=== PATIENT | female | born 1990 | race Caucasian/White ===

== ENCOUNTER 2017-03-20 00:26 | Inpatient (IN) ==
[2017-03-20] MEDS ORDERED: 0.9 % Sodium Chloride 1,000 ML IVC ONE (02:52)
[2017-03-20] MEDS ORDERED: Vancomycin 1,000 MG in D5% in Water 250 ML IVPB ONE (02:52)
--- NOTE | 2017-03-20 03:12 | Emergency Department Note ---
Disposition Clinical Impression: Abscess of left axilla Disposition: Admitted As Inpatient Condition: Fair Time of Disposition: 05:12 Skin/Abscess/FB HPI Chief complaint: ED Skin/Abscess/Foreign Body Stated complaint: Boil L Armpit Time Seen by Provider: 03/20/17 01:30 Source: patient Mode of arrival: ambulatory Limitations: no limitations Nursing Notes Reviewed: Yes Vital Signs Reviewed: Yes HPI Narrative: 26-year-old female presents complaining of left axillary abscesses history of IV drug use, she states she has been clean for 2 years. Patient states that she was given a perception for Bactrim that she was taking for the last 5 days, she said worsening pain swelling and redness, drainage out of the wounds her left arm, she also states that she has had redness streaking down her left arm. Patient reports the pain is 7 out of 10. Worse with range of motion of her left arm, she has had intermittent fevers and chills at home. Pt Subjective Complaint: abscess/boil Location: LUE Severity: mild Improves with: none Worsens with: none Associated symptoms: Reports: fever, chills. Denies: rigors, itching, nausea, myalgias, cough Home Medications Medication Instructions Recorded Confirmed Buprenorphine HCl/Naloxone HCl 1 each SL 11/14/14 11/14/14 [Suboxone 8 mg-2 mg Sl Film] Medroxyprogesterone Acetate 11/14/14 11/14/14 [Depo-Provera] Previous Rx's Medication Instructions Recorded Amoxicillin [Amoxil] 500 mg PO TID #30 tab.chew 11/14/14 Ibuprofen [Motrin] 800 mg PO Q8HR #30 tablet 11/14/14 Mupirocin Calcium [Mupirocin] 30 gm TP TID #1 cream..g. 02/22/16 cephALEXin [Keflex] 500 mg PO QID #40 capsule 05/29/16 Lidocaine Patch [Lidoderm 5% patch] 1 each TP DAILY PRN #7 adh..patch 03/14/17 Sulfamethoxazole/Trimeth DS 1 each PO BID #20 tablet 03/14/17 [Bactrim DS] Allergies Allergy/AdvReac Type Severity Reaction Status Date / Time No Known Allergies Allergy Verified 02/22/16 03:36 All systems ED: reviewed and negative except as stated. Review of Systems: As Per HPI Constitutional: Reports: fever, chills Eyes: Denies: eye pain, eye discharge ENT ED: Denies: ear pain Cardiovascular: Denies: chest pain, palpitations Respiratory: Denies: cough, dyspnea Gastrointestinal: Reports: nausea. Denies: abdominal pain Genitourinary: Denies: urgency Musculoskeletal: Denies: back pain Integumentary: Reports: as per HPI, rash, abrasion, lesions Neurological: Denies: headache, weakness Psychiatric: Denies: anxiety Past Medical History - Past Medical History Attestation: Yes The following information was validated with the patient. 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 Absent: respiratory distress - Cardiovascular Cardiovascular exam: Present: tachycardia - Abdominal Exam Abdominal exam: Present: soft, Non-Tender - Expanded Upper Extremity Exam Shoulder exam: Present: normal inspection, full ROM, other (abscess left axillary multiple) Arm exam: Present: tenderness, swelling, erythema. Absent: deformity, crepitus Elbow exam: Absent: full ROM, tenderness - Back Exam Back exam: Absent: normal inspection - Neurological Exam Neurological exam: Present: alert, oriented X3, CN II-XII intact - Psychiatric Psychiatric exam: Present: normal affect - Skin Skin exam: Present: rash - Expanded Skin Exam Type of lesion: Present: rash, abscess Description: Present: discharge, indurated 1 - 3-4 deep abscesses with purulent drainage, redness streaking down left arm Course Course Narrative: 26-year-old female history of IV drug use, saline outpatient Bactrim, for left axillary abscess given the location concerning for possible need for surgical drainage, also she is having erythema spread down her left arm worsening and progressive cellulitis and she is tachycardic with basic lab work lactated blood cultures plan for admission and, IV - Reevaluation(s) Reevaluation #1: Admitted to Dr Norton for left aillary abscess and cellulitis Vital Signs Temperature 98.7 F 03/20/17 00:33 Pulse Rate 121 03/20/17 00:33 Respiratory Rate 18 03/20/17 00:33 Blood Pressure 129/88 03/20/17 00:33 O2 Sat by Pulse Oximetry 100 03/20/17 00:33 Temperature 98.7 F 03/20/17 00:33 Pulse Rate 90 03/20/17 05:39 Respiratory Rate 16 03/20/17 05:39 Blood Pressure 141/128 03/20/17 05:39 O2 Sat by Pulse Oximetry 96 03/20/17 05:39 Oxygen Delivery Oxygen Delivery Room Air Skin/Abscess/Foreign Body - Differential Diagnosis Likely: abscess of skin or subcutaneous tissue, dermatophytosis, urticaria, cellulitis - Medical Records Medical records reviewed: Yes I reviewed the patient's medical records. - Lab Data Lab results reviewed: Yes I reviewed the patient's lab results. Result diagrams: 03/20/17 03:21 03/20/17 03:21 Lab Results 03/20/17 03/20/17 03/20/17 Range/Units 03:21 03:21 03:21 WBC 9.5 (4.3-11.1) K/mcL RBC 4.22 (3.82-4.97) M/mcL Hgb 13.8 (11.5-15.4) g/dL Hct 40.3 (35.3-44.9) % MCV 95.5 (83.0-100.0) fL MCH 32.7 (28.0-33.3) pg MCHC 34.2 (31.6-35.5) g/dL RDW 13.2 (11.5-14.5) % Plt Count 360 (140-400) K/mcL MPV 8.4 L (9.4-12.4) fL Immature Gran % 1.2 (0-4) % Seg Neutrophils % 57.8 % Lymphocytes % 32.3 % Monocytes % 5.8 % Eosinophils % 2.1 % Basophils % 0.8 % Neutrophils # 5.5 (1.6-8.9) K/mcL Lymphocytes # 3.1 (0.6-4.6) K/mcL Monocytes # 0.6 (0.0-1.3) K/mcL Eosinophils # 0.2 (0.0-0.6) K/mcL Basophils # 0.1 (0.0-0.2) K/mcL Sodium 137 (136-145) mEq/L Potassium 4.6 (3.5-5.1) mEq/L Chloride 100 (98-107) mEq/L Carbon Dioxide 26 (23-29) mEq/L BUN 14 (6-20) mg/dL Creatinine 1.26 H (0.60-1.20) mg/dL Est GFR ( Amer) > 60 (> 60) Est GFR (Non-Af Amer) 51 L (> 60) BUN/Creatinine Ratio 11 (6-26) Glucose 98 (70-105) mg/dL Calculated Osmolality 284 (280-300) Lactic Acid 1.3 (0.5-2.2) mmol/L Calcium 9.7 (8.6-10.3) mg/dL Attestation Statement - Attestation Attestation: I, Andriy Dias MD, personally evaluated this patient and discussed their management with the resident physician. I reviewed the resident's note and agree with the documented findings, medical decision making, and plan of care. 26-year-old female presents to the emergency department with a complaint of multiple abscesses in the left axilla. This started about a week ago and has gotten progressively worse. She was seen here in the emergency department several days ago and started on Bactrim which she has been taking however she states it has continued to get progressively worse and yesterday developed redness over the medial aspect of the upper arm. She has had subjective fevers. On examination the patient is a well-developed thin female in no acute distress she is alert and oriented 3. There is no cyanosis or diaphoresis. Breath sounds are clear and equal bilaterally. Heart regular and tachycardic. Abdomen is soft and nontender with normal bowel sounds. Patient has multiple small abscesses in the left axilla with some draining spontaneously. There is a large area of cellulitis to the medial aspect of the left upper arm extending from the axilla down near the elbow. Neurovascular function intact distally. Labs reviewed. The hospitalist, Dr. Norton, was consulted and accepted admission of the patient.
[2017-03-20 03:30] LABS: Basophils # 0.1 K/mcL (0.0-0.2); Basophils % 0.8 %; Eosinophils # 0.2 K/mcL (0.0-0.6); Eosinophils % 2.1 %; Hematocrit 40.3 % (35.3-44.9); Hemoglobin 13.8 g/dL (11.5-15.4); Immature Granulocytes % 1.2 % (0-4); Lymphocytes # 3.1 K/mcL (0.6-4.6); Lymphocytes % 32.3 %; Mean Corpuscular HGB Conc 34.2 g/dL (31.6-35.5); Mean Corpuscular Hemoglobin 32.7 pg (28.0-33.3); Mean Corpuscular Volume 95.5 fL (83.0-100.0); Mean Platelet Volume 8.4 fL (9.4-12.4); Monocytes # 0.6 K/mcL (0.0-1.3); Monocytes % 5.8 %; Neutrophils # 5.5 K/mcL (1.6-8.9); Platelet Count 360 K/mcL (140-400); Red Blood Count 4.22 M/mcL (3.82-4.97); Red Cell Distribution Width 13.2 % (11.5-14.5); Segmented Neutrophils % 57.8 %
[2017-03-20 03:43] LABS: BUN/Creatinine Ratio 11 (6-26); Blood Urea Nitrogen 14 mg/dL (6-20); Calcium 9.7 mg/dL (8.6-10.3); Carbon Dioxide 26 mEq/L (23-29); Chloride 100 mEq/L (98-107); Glucose 98 mg/dL (70-105); Osmolality,Calculated 284 (280-300); Potassium 4.6 mEq/L (3.5-5.1); Sodium 137 mEq/L (136-145); eGFR For African Americans > 60 (> 60); eGFR For Non-African Americans 51 (> 60)
[2017-03-20] MEDS ORDERED: Naloxone 0.4 MG/ML INJ IVP PRN (08:19)
[2017-03-20] MEDS ORDERED: Ondansetron 4 MG/2 ML VIAL IVP PRN (08:19)
--- NOTE | 2017-03-20 08:26 | Internal Med History&Physical ---
<Burden,Sydnee J - Last Filed: 03/20/17 09:16> Date of Encounter: 03/20/17 Time of Encounter: 08:26 Assessment and Plan (1) Abscess of left axilla Current visit: Yes Status: Acute presented to ED on 03/14/2017 with c/o "boils to left armpit". Was given rx for bactrim and discharged home. Now returns with worsening sx's; 4 areas of erythema and induration to axilla, erythema streaking from left axilla to anticubital. Tachycardic on arrival. No elevated WBC, lactic acid normal. Patient reports 2 of the areas spontaneously drained without intervention. No active drainage to culture. Received IV vanco in ED with what sounds an apparent local reaction (patient reported hives, urticaria to IV site). Change ATB to Zyvox, zosyn. Blood cx and LUE Doppler pending. Consult General Surgery if sx's not improving (2) AMAURI (acute kidney injury) Current visit: Yes Status: Acute Cr 1.2; baseline normal. No known kidney disease. Cont IV fluids, monitor repeat renal function. (3) Elevated blood pressure reading Current visit: Yes Status: Acute no previous dx hypertension. SBPs in 150s, DBPs in 100s. Possibly secondary to pain/anxiety. Hold on initiating antihypertensive for now. Add PRN hydralazine. Monitor BP and titrate PRN (4) Hypothyroidism Current visit: Yes Status: Acute per patient reported hx. Dx at 10 years old. Non-complaint with levothyroxine due to insurance reasons. TSH pending Qualifiers: Hypothyroidism type: acquired Qualified Code(s): E03.9 - Hypothyroidism, unspecified (5) IVDU (intravenous drug user) Current visit: Yes Status: Acute hx IVDA, last used 2 years ago. Hepatitis panel pending (6) DVT prophylaxis Current visit: Yes Status: Acute heparin Internal Medicine - H&P: HPI Chief complaint: left arm pain and swelling Admitted From: Home History of present illness: Ms. Dow is a 26 year old female with PMH hypothyroidism and IVDU who presented to [facility] on 03/20/2017 with left axilla swelling, pain and erythema. She was recently seen in ED for same symptoms and treated with PO Bactrim. Her symptoms worse therefore she returned to ER. She was found to be tachycardiac with significant progression of erythema therefore she was admitted for IV ATB. Patient is new to me, information obtained from chart review and patient report. Patient reports history of IV drug use, last used years ago. She reports pain and erythema to left axilla started approximately one week ago. She was seen in the ER and was given oral Bactrim and sent home. Says she has taken multiple doses with significant worsening of symptoms. She has 4 abscesses and 2 of them spontaneously drained on their own. No alleviating or aggravating factors. Denies recent IV drug use. No fever or chills. Reports redness, hives and itching to IV site after receiving IV vancomycin in ED. Past Med Surg Social Fam HX - Past Medical History Medical history: hepatitis, thyroid disease Psychiatric history: PTSD - Past Surgical History Surgical History: no surgical history - Social History Smoking Status: Current every day smoker Smokeless Tobacco Status: No Alcohol use: none Drug use: none - Family History Mother Living Status: Still Living Hx Family Cardiac Disorders: No Hx Family Respiratory Disorders: No Hx Family Cancer: No Hx Family GI Disorders: No Hx Family Genitourinary Disorders: No Hx Family Endocrine Disorder: No Hx Family Musculoskeletal Disorders: No Hx Family Neuromuscular Disorders: No Hx Family Neurologic Disorders: No Hx Family HEENT Disorders: No Hx Family Autoimmune Disorders: No Hx Family Reproductive Disorders: No Hx Family Psychosocial Disorders: No Hx Family Medical Disorders: No Internal Medicine - H&P: Meds Lidocaine Patch [Lidoderm 5% patch] 1 patch TP DAILY PRN 03/20/17 [History] Sulfamethoxazole/Trimeth DS [Bactrim DS] 1 tab PO BID 03/20/17 [History] 3 Allergy/AdvReac Type Severity Reaction Status Date / Time No Known Allergies Allergy Verified 02/22/16 03:36 All Systems PM: A 10-system review of systems was performed and is negative for pertinent findings except as documented above in the HPI. - Constitutional Constitutional: no chills, no fever(s), no night sweats - EENT Eyes: no change in vision, no discharge, no pain, no photophobia Ears: no ear discharge, no ear pain, no tinnitus Nose, mouth and throat: no dysphagia, no nasal discharge, no neck pain, no sore throat - Cardiovascular Cardiovascular ROS IM: no chest pain, no diaphoresis, no dyspnea, no lightheadedness, no palpitations, no syncope - Respiratory Respiratory: no cough, no dyspnea, no wheezing, no excessive phlegm production - Gastrointestinal Gastrointestinal: no abdominal pain, no diarrhea, no hematemesis, no hematochezia, no melena, no nausea, no vomiting - Genitourinary Genitourinary: no change in urinary stream, no dysuria, no flank pain, no hematuria - Musculoskeletal Musculoskeletal ROS IM: no numbness, no tingling - Integumentary Integumentary IM: erythema, sores, no rash, no unusual bruising Additional comments: Left axilla with 4 raised, indurated areas, no active drainage. Erythema streaking from axilla to antecubital - Neurological Neurological ROS: no confusion, no convulsions, no focal weakness, no numbness, no tingling, no tremor(s) - Hematologic/Lymphatic Hematologic/Lymphatic: no easy bruising - Constitutional Vitals: Temp Pulse Resp BP Pulse Ox 98.5 F 96 18 155/107 99 03/20/17 06:22 03/20/17 06:22 03/20/17 06:22 03/20/17 06:22 03/20/17 06:22 General appearance: Present: A&O X 3, no acute distress - Head Head exam: Present: atraumatic, normocephalic - Eye Eye exam: Present: PERRL, conjuntiva pink, sclera anicteric Pupils: Present: PERRL - Neck Neck exam general surgery: Present: supple, trachea midline. Absent: lymphadenopathy - Respiratory Respiratory exam: Present: CTAB. Absent: accessory muscle use, rales, rhonchi, wheezes - Cardiovascular Cardiovascular exam: Present: RRR, +S1, +S2. Absent: diastolic murmur, gallop, rubs, systolic murmur - GI/Abdominal GI/Abdominal exam: Present: normal bowel sounds, soft, no peritoneal signs. Absent: distended, tenderness - Extremities Exam Extremities exam: Present: warm, radial pulses palpable and symmetrical. Absent : calf tenderness, cyanotic, pedal edema - Neurological Exam Neurological exam: Present: CN II-XII intact, oriented X3, no focal deficits. Absent: pronater drift, facial droop, speech deficit - Skin Skin exam: Present: dry, intact Additional comments: Left axilla with 4 areas of erythema, induration and dried drainage. Erythema streaking from axilla to antecubital Internal Med - H&P Results - Labs CBC & Chem 7: 03/20/17 03:21 03/20/17 03:21 <Scott Zhao - Last Filed: 03/20/17 18:41> Date of Encounter: 03/20/17 Internal Medicine - H&P: HPI History of present illness: Ms. Dow is a 26 year old female All Systems PM: A 10-system review of systems was performed and is negative for pertinent findings except as documented above in the HPI. - Constitutional Vitals: Temp Pulse Resp BP Pulse Ox 97.8 F 89 16 99/64 98 03/20/17 15:20 03/20/17 15:20 03/20/17 15:20 03/20/17 15:20 03/20/17 15:20 Internal Med - H&P Results - Labs CBC & Chem 7: 03/20/17 03:21 03/20/17 03:21 - Attending Attestation I have personally performed a face to face evaluation on this patient. I have reviewed and agree with the care plan. History and Exam by me shows: 26 y/o female admitted for abscess in axillary area Exam Alert. Comfortable Multiple abscesses noted Agree with assessment and plan as above.
[2017-03-20] MEDS ORDERED: 0.9 % Sodium Chloride 1,000 ML IVC SCH (08:30)
[2017-03-20] MEDS ORDERED: DAPTOmycin 250 MG in 0.9 % Sodium Chloride 100 ML IVPB SCH (09:00)
[2017-03-20] MEDS: Acetaminophen 325 MG TABLET PO PRN (10:06)
[2017-03-20] MEDS: Piperacillin/Tazobactam 3.375 GM/200 ML BAG IVPB SCH ×2 (10:07→16:26)
[2017-03-20] MEDS ORDERED: Bismuth Subsalicylate 120 ML ORAL SUSPENSION PO PRN (12:21)
[2017-03-20] MEDS: *HR* Heparin 5,000 UNIT/ML VIAL SQ SCH (16:25)
[2017-03-20] MEDS: traZODone 50 MG TABLET PO SCH (21:18)
--- NOTE | 2017-03-20 21:46 | Event Note ---
Date of Encounter: 03/20/17 Time of Encounter: 21:45 Called by RN stating patient TSH is 121. She has history of hypothyroidism and had been on Synthroid 125 mcg daily in the past. However, she has not taken it in over 3 months. I ordered Synthroid 25 mcg daily, and this should be titrated up slowly.
[2017-03-21] MEDS: *HR* Heparin 5,000 UNIT/ML VIAL SQ SCH ×3 (00:11→17:34)
[2017-03-21] MEDS ORDERED: 0.9 % Sodium Chloride 1,000 ML IVC ONE (01:05)
[2017-03-21] MEDS: Piperacillin/Tazobactam 3.375 GM/200 ML BAG IVPB SCH ×3 (02:41→17:34)
[2017-03-21] MEDS: 0.9 % Sodium Chloride 1,000 ML IVC SCH ×3 (03:00→17:33)
--- NOTE | 2017-03-21 03:00 | Event Note ---
Date of Encounter: 03/21/17 Time of Encounter: 02:57 Called for low BP x 2 despite 1 liter IVF bolus prior to last BP. I came to assess patient. She appears well perfused with good cap refill. She has no SOB or CP. Left arm with stable cellulitis/abscesses. I ordered IVF 0.9 at 150 ml/hour. Blood cultures and wound cultures have already been drawn. I will order Lactate and trend if necessary. I requested RN to monitor vitals Q 4H for the next four hours. I will stop her Hydralazine; of note, she has not received any doses of it.
[2017-03-21 03:39] LABS: Hematocrit 35.7 % (35.3-44.9); Immature Platelets 0.7 % (1.1-6.1); Mean Corpuscular HGB Conc 33.3 g/dL (31.6-35.5); Mean Corpuscular Hemoglobin 32.4 pg (28.0-33.3); Mean Corpuscular Volume 97.3 fL (83.0-100.0); Mean Platelet Volume 8.4 fL (9.4-12.4); Red Blood Count 3.67 M/mcL (3.82-4.97); Red Cell Distribution Width 13.3 % (11.5-14.5)
[2017-03-21 03:45] LABS: Hemoglobin 11.9 g/dL (11.5-15.4)
[2017-03-21 03:52] LABS: BUN/Creatinine Ratio 12 (6-26); Blood Urea Nitrogen 15 mg/dL (6-20); Calcium 7.9 mg/dL (8.6-10.3); Carbon Dioxide 23 mEq/L (23-29); Chloride 110 mEq/L (98-107); Glucose 87 mg/dL (70-105); Osmolality,Calculated 286 (280-300); Potassium 3.8 mEq/L (3.5-5.1); Sodium 138 mEq/L (136-145); eGFR For African Americans > 60 (> 60); eGFR For Non-African Americans 51 (> 60)
[2017-03-21 04:51] LABS: Hepatitis A Antibody IgM Nonreactive (Nonreactive); Hepatitis B Core IgM Nonreactive (Nonreactive); Hepatitis B Surface Antigen Nonreactive (Nonreactive)
[2017-03-21 04:52] LABS: Hepatitis C Virus Antibody Reactive (Nonreactive)
[2017-03-21] MEDS: Levothyroxine 25 MCG TABLET PO SCH (06:19)
--- NOTE | 2017-03-21 09:56 | Discharge Summary ---
Date of Encounter: 03/21/17 Time of Encounter: 09:56 - Discharge Diagnosis (1) Abscess of left axilla Priority: Primary Status: Acute Comments: presented to ED on 03/14/2017 with c/o "boils to left armpit". Was given rx for bactrim and discharged home. Now returns with worsening sx's; 4 areas of erythema and induration to axilla, erythema streaking from left axilla to anticubital. Tachycardic on arrival. No elevated WBC, lactic acid normal. Patient reports 2 of the areas spontaneously drained without intervention. Received IV vanco in ED with what sounds an apparent local reaction (patient reported hives, urticaria to IV site). Preliminary wound culture identified as MRSA. Blood cx negative. LUE doppler negative for DVT. Cont IV Zyvox, zosyn. Follow wound cx and narrow ATB accordingly (2) AMAURI (acute kidney injury) Priority: Primary Status: Acute Comments: Cr 1.2; baseline normal. No known kidney disease. No improvement in renal function with IV fluids. Cont IV fluids. ABD CT pending, monitor repeat renal function. (3) Elevated blood pressure reading Priority: Primary Status: Acute Comments: no previous dx hypertension. SBPs in 150s, DBPs in 100s on arrival; thought to be secondary to pain/anxiety. However became hypotensive with SBP's and ATVs overnight requiring IV fluid bolus. BP remains off/borderline, no tachycardia. Lactic acid normal. Continue IV fluids, monitor BP (4) Hypothyroidism Priority: Primary Status: Acute Comments: per patient reported hx. Dx at 10 years old. Non-complaint with levothyroxine due to insurance reasons. TSH 121; discussed with pharmacy and will resume home dose. Qualifiers: Hypothyroidism type: acquired Qualified Code(s): E03.9 - Hypothyroidism, unspecified (5) Hepatitis C Priority: Secondary Status: Chronic Comments: hx IV drug abuse. Hepatitis panel positive for hepatitis C. LFTs pending Qualifiers: Viral hepatitis chronicity: unspecified Qualified Code(s): B19.20 - Unspecified viral hepatitis C without hepatic coma (6) DVT prophylaxis Priority: Secondary Status: Chronic Comments: heparin - Discharge Medications Prescriptions: Doxycycline 100 mg PO BID #14 capsule Levothyroxine [Synthroid] 125 mcg PO 0630 #30 tablet Home Medications: Lidocaine Patch [Lidoderm 5% patch] 1 patch TP DAILY PRN 03/20/17 [History] Doxycycline 100 mg PO BID #14 capsule 03/21/17 [Rx] Levothyroxine [Synthroid] 125 mcg PO 0630 #30 tablet 03/21/17 [Rx] Allergies/Adverse Reactions: 3 Allergy/AdvReac Type Severity Reaction Status Date / Time No Known Allergies Allergy Verified 02/22/16 03:36 Procedures/tests Complete & Pending: Procedures Performed prior 72 hours Category Date Time Status CT abd pelvis wo no iv no oral [CT] Routine Cat Scan 03/21/17 09:30 Taken Venous Doppler [EV venous imaging UE LT] Routine Y 03/20/17 08:22 Completed Date of admission: 03/20/17 08:19 Primary care physician: Berta Reid CNP Discharging clinician: Sydnee Burden Anticipated date of discharge: 03/21/17 - Patient Status Disposition: Home, Self-Care Condition: Fair - Discharge Instructions Follow Up With: Berta Reid CNP [Primary Care Provider] - Interval History: Seen and examined at bedside. Left axilla abscess is significantly improved. Says she is tired, wants to go home. Otherwise has no complaints. Says she discussed insurance with her mom and mom is working on getting health card activated. Patient is established with PCP and endocrinology and has good follow-up. Hospital course: Ms. Dow is a 26 year old female - Time Spent with Patient Total time spent providing and/or coordinating discharge services: - Constitutional Vitals: Temp Pulse Resp BP Pulse Ox 98.5 F 68 16 98/54 98 03/21/17 06:48 03/21/17 06:48 03/21/17 06:48 03/21/17 06:48 03/21/17 06:48 General appearance: Present: A&O X 3, no acute distress - Head Head exam: Present: atraumatic, normocephalic - Eye Eye exam: Present: PERRL, conjuntiva pink, sclera anicteric Pupils: Present: PERRL - Neck Neck exam general surgery: Present: supple, trachea midline. Absent: lymphadenopathy - Respiratory Respiratory exam: Present: CTAB. Absent: accessory muscle use, rales, rhonchi, wheezes - Cardiovascular Cardiovascular exam: Present: RRR, +S1, +S2. Absent: diastolic murmur, gallop, rubs, systolic murmur - GI/Abdominal GI/Abdominal exam: Present: normal bowel sounds, soft, no peritoneal signs. Absent: distended, tenderness - Extremities Exam Extremities exam: Present: warm, radial pulses palpable and symmetrical. Absent : calf tenderness, cyanotic, pedal edema Additional comments: left axilla with definitively improved multiple abscesses. Swelling, erythema and tenderness decreased. No streaking apparent on today's exam - Neurological Exam Neurological exam: Present: CN II-XII intact, oriented X3, no focal deficits. Absent: pronater drift, facial droop, speech deficit - Skin Skin exam: Present: dry, intact
[2017-03-21] MEDS: Acetaminophen 325 MG TABLET PO PRN (09:57)
[2017-03-21 14:25] LABS: Alanine Aminotransferase 52 Units/L (7-52); Albumin 3.6 g/dL (3.5-5.7); Albumin/Globulin Ratio 1.3 (1.1-2.2); Alkaline Phosphatase 55 Units/L (34-104); Aspartate Amino Transferase 43 Units/L (13-39); Bilirubin,Indirect 0.3 mg/dL (0.0-1.2); Bilirubin,Total 0.3 mg/dL (0.3-1.0); Globulin 2.7 g/dL (2.4-3.5); Total Protein 6.3 g/dL (6.4-8.9)
[2017-03-21] MEDS: traZODone 50 MG TABLET PO SCH (21:00)
[2017-03-22] MEDS: *HR* Heparin 5,000 UNIT/ML VIAL SQ SCH ×2 (00:30→08:39)
[2017-03-22] MEDS: 0.9 % Sodium Chloride 1,000 ML IVC SCH (00:32)
[2017-03-22] MEDS ORDERED: Piperacillin/Tazobactam 3.375 GM/200 ML BAG IVPB SCH (05:30)
[2017-03-22] MEDS: Levothyroxine 25 MCG TABLET PO SCH (06:21)
[2017-03-22 07:02] VITALS: BP 95/61
[2017-03-22] MEDS ORDERED: Doxycycline 100 MG CAPSULE PO SCH (08:11)
== END 2017-03-22 10:17 | disposition home or self-care (01) | DRG 603 ==
LOC: 3NENU 00:26 → EMEROO 00:26 → 3NENU 06:05 → SUATTDRO 08:19 → 3NENU 03-21 13:03 → 3ANU 03-21 13:04
PROVIDERS: ADMIT Internal Medicine; ATTEND Internal Medicine

== ENCOUNTER 2018-08-04 15:08 | Observation (INO) ==
[2018-08-04] MEDS ORDERED: Naloxone 0.4 MG/ML INJ IVP ONE (15:10)
[2018-08-04] MEDS ORDERED: 0.9 % Sodium Chloride 1,000 ML IVC ONE (15:10)
--- NOTE | 2018-08-04 15:12 | Emergency Department Note ---
Disposition Clinical Impression: Altered mental status Qualifiers: Altered mental status type: unspecified Qualified Code(s): R41.82 - Altered mental status, unspecified Disposition: Admitted As Inpatient Condition: Serious Time of Disposition: 00:07 Altered Mental Status HPI - General Stated Complaint: AMS Time Seen by Provider: 08/04/18 15:10 Source: other Mode of arrival: private vehicle (Asians friend) Limitations: altered mental status Nursing Notes Reviewed: Yes Vital Signs Reviewed: Yes - History of Present Illness HPI Narrative: 28-year-old female past medical history of psychiatric admission for suicidal ideation recently released from this facility presenting for altered mental status. Her friend in the car who brought her to the ED states that they were on their way to the ED already when the patient became unresponsive. There was no report of convulsions, or any prodromal symptoms. Patient arrives to the ED she is alert to verbal stimuli, able to follow commands but appears somnolent. Patient denies any pain, difficulty breathing, or weakness unilaterally. Patient states that she has taken Neurontin but denies any other recent ingestion of drugs or alcohol. We will reassess frequently with altered mental status workup including toxicology screening. MD complaint: altered mental status Onset (ago): Just MANAGER RISK Pain Severity: none Pain Scale: 0 Context: history psychiatric disease Associated symptoms: Reports: denies other symptoms - Related Data Home Medications Medication Instructions Recorded Confirmed Levothyroxine Sodium [Levoxyl] 100 mcg PO DAILY 09/04/17 09/04/17 Medroxyprogesterone Acetate 150 mg IM Q3M 09/04/17 09/04/17 [DEPO-Provera] Sertraline [Zoloft] 50 mg PO DAILY 09/04/17 09/04/17 Allergies Allergy/AdvReac Type Severity Reaction Status Date / Time vancomycin Allergy Intermediate Hives Verified 03/22/17 09:06 Limitations: ROS unobtainable due to patients medical condition Past Medical History - Past Medical History Source: unable to obtain Medical history: Reports: hepatitis, thyroid disease Surgical history: Reports: no surgical history Psychiatric history: Reports: anxiety, depression, PTSD CHIEF DESIGN ENGINEER history: Reports: no CHIEF DESIGN ENGINEER history - Social History Smoking Status: Current every day smoker Smokeless Tobacco Status: No Alcohol use: Reports: none Drug use: Reports: none Physical Exam Constitutional: Patient is alert but extremely somnolent opens eyes spontaneously, moving all 4 extremities, is able to vocalize without slurred speech. Neuro: GCS 15, no overt focal neurological deficits Head: Atraumatic, normocephalic Eyes: Pupils equal, round and reactive to light, no scleral icterus, no conjunctival injection Neck: Trachea midline without deviation. Anterior neck is supple without swelling. *Chest: Symmetric chest wall rise *Heart: Cardiac rhythm and rate are regular with S1 and S2 , no S3 or S4 appreciated, no murmurs, gallops, rubs, or clicks. *Lungs: Lungs are clear to auscultation bilaterally, without accessory muscle use or prolonged expiratory phase. No wheezes, rhonchi or stridor appreciated. Abdomen: Abdomen is flat, soft to palpation, normal bowel sounds. No abdominal bruit auscultated. Non-distended, non-rigid, no organomegaly, no ascites appreciated. No pulsatile mass, no tenderness or guarding to palpation in all four quadrants, no rebound Extremities: Normal capillary refill without evidence of pedal edema, joint swelling or erythema. Pulses/motor intact in all 4 extremities. Integumentary: No acute signs of trauma. warm, dry, intact, normal color. No rash, cyanosis, diaphoresis, erythema, or pallor - General Limitations: altered mental status General appearance: lethargic Course Course Narrative: Altered mental status concerning for trauma, metabolic pathology, versus toxicology Full abdominal labs, blood culture, lactic acid, ammonia, CT scan of the head and neck, chest x-ray, EKG/old EKG Vital Signs Temperature 98.8 F 08/04/18 15:14 Pulse Rate 120 08/04/18 15:14 Respiratory Rate 14 08/04/18 15:14 Blood Pressure 123/79 08/04/18 15:14 O2 Sat by Pulse Oximetry 100 08/04/18 15:14 Temperature 98.2 F 08/04/18 23:29 Pulse Rate 66 08/04/18 23:14 Respiratory Rate 14 08/04/18 21:45 Blood Pressure 85/52 08/04/18 23:14 O2 Sat by Pulse Oximetry 94 08/04/18 23:14 Oxygen Delivery Oxygen Delivery Room Air Altered Mental Status - [facility] Narrative Medical decision making narrative: Laboratory results show hyperammonemia which has decreased here in the ER, lactic acid elevated at 3.8. IV fluids given in ER we will reassess. Imaging, EKG laboratories otherwise unremarkable for acute pathology. Patient will be admitted to hospitalist medicine service for further evaluation and management of syncopal episode, possibly secondary to seizure. Patient will require psychiatric consultation while inpatient. - Lab Data Lab results reviewed: Yes I reviewed the patient's lab results. Result diagrams: 08/04/18 15:10 08/04/18 15:10 Lab Results 08/04/18 08/04/18 08/04/18 Range/Units 15:10 15:10 15:10 WBC 11.1 (4.3-11.1) K/mcL RBC 4.45 (3.82-4.97) M/mcL Hgb 14.3 (11.5-15.4) g/dL Hct 45.1 H (35.3-44.9) % MCV 101.3 H (83.0-100.0) fL MCH 32.1 (28.0-33.3) pg MCHC 31.7 (31.6-35.5) g/dL RDW 12.3 (11.5-14.5) % Plt Count 309 (140-400) K/mcL MPV 8.6 L (9.4-12.4) fL Immature Gran % 0.3 (0-4) % Seg Neutrophils % 41.4 % Lymphocytes % 45.5 % Monocytes % 8.3 % Eosinophils % 3.7 % Basophils % 0.8 % Neutrophils # 4.6 (1.6-8.9) K/mcL Lymphocytes # 5.0 H (0.6-4.6) K/mcL Monocytes # 0.9 (0.0-1.3) K/mcL Eosinophils # 0.4 (0.0-0.6) K/mcL Basophils # 0.1 (0.0-0.2) K/mcL PT 10.6 (9.4-12.1) Seconds INR 0.9 APTT 38.5 H (26.0-36.0) Seconds Sodium (136-145) mEq/L Potassium (3.5-5.1) mEq/L Chloride (98-107) mEq/L Carbon Dioxide (23-29) mEq/L BUN (6-20) mg/dL Creatinine (0.60-1.20) mg/dL Est GFR ( Amer) (> 60) Est GFR (Non-Af Amer) (> 60) BUN/Creatinine Ratio (6-26) Glucose (70-105) mg/dL Calculated Osmolality (280-300) Lactic Acid (0.5-2.2) mmol/L Calcium (8.6-10.3) mg/dL Total Bilirubin (0.3-1.0) mg/dL Direct Bilirubin (0.0-0.2) mg/dL Indirect Bilirubin (0.0-1.2) mg/dL AST (13-39) Units/L ALT (7-52) Units/L Alkaline Phosphatase (34-104) Units/L Ammonia (16-53) mcmol/L Creatine Kinase (30-223) Units/L Troponin I (< 0.04) ng/mL Serum Total Protein (6.4-8.9) g/dL Albumin (3.5-5.7) g/dL Globulin (2.4-3.5) g/dL Albumin/Globulin Ratio (1.1-2.2) TSH Free T4 (0.70-2.00) ng/dl Urine Color (Yellow) Urine Clarity (Clear) Urine pH (5.0-8.0) pH Units Ur Specific [place] (1.010-1.025) Urine Protein (Neg-Trace) mg/dL Urine Glucose (UA) (Normal) mg/dL Urine Ketones (Negative) mg/dL Urine Blood (Negative) Urine Nitrite (Negative) Urine Bilirubin (Negative) Urine Urobilinogen (Normal) mg/dL Ur Leukocyte Esterase (Negative) Urine Microscopic RBC (0-3) per hpf Urine Microscopic WBC (0-3) per hpf Ur Squamous Epith Cells (None-Few) per lpf Urine Bacteria (None-Few) per hpf Hyaline Casts (None-Few) per lpf Ur Culture Indicated? (NO) Urine Test (Negative) Salicylates (15.0-30.0) mg/dL Urine Opiates Screen Negative (Bhevil=429) ng/mL Acetaminophen (10-20) mcg/mL Ur Barbiturates Screen Negative (Aathqi=395) ng/mL Ur Phencyclidine Scrn Negative (Cutoff=25) ng/mL Ur Amphetamines Screen Positive H (Zpnxjj=1882) ng/mL U Benzodiazepines Scrn Negative (Zhptmg=679) ng/mL Urine Cocaine Screen Negative (Cutoff= 300) ng/mL U Marijuana (THC) Screen Negative (Cutoff = 50) ng/mL Ur Drug Screen Interp See Below Ethyl Alcohol (Less than 10) mg/dL Hepatitis A IgM Ab (Nonreactive) Hep Bs Antigen (Nonreactive) Hep B Core IgM Ab (Nonreactive) Hepatitis C Ab Screen (Nonreactive) 08/04/18 08/04/18 08/04/18 Range/Units 15:10 15:10 15:10 WBC (4.3-11.1) K/mcL RBC (3.82-4.97) M/mcL Hgb (11.5-15.4) g/dL Hct (35.3-44.9) % MCV (83.0-100.0) fL MCH (28.0-33.3) pg MCHC (31.6-35.5) g/dL RDW (11.5-14.5) % Plt Count (140-400) K/mcL MPV (9.4-12.4) fL Immature Gran % (0-4) % Seg Neutrophils % % Lymphocytes % % Monocytes % % Eosinophils % % Basophils % % Neutrophils # (1.6-8.9) K/mcL Lymphocytes # (0.6-4.6) K/mcL Monocytes # (0.0-1.3) K/mcL Eosinophils # (0.0-0.6) K/mcL Basophils # (0.0-0.2) K/mcL PT (9.4-12.1) Seconds INR APTT (26.0-36.0) Seconds Sodium 140 (136-145) mEq/L Potassium 3.5 (3.5-5.1) mEq/L Chloride 104 (98-107) mEq/L Carbon Dioxide 18 L (23-29) mEq/L BUN 17 (6-20) mg/dL Creatinine 0.97 (0.60-1.20) mg/dL Est GFR ( Amer) > 60 (> 60) Est GFR (Non-Af Amer) > 60 (> 60) BUN/Creatinine Ratio 18 (6-26) Glucose 102 (70-105) mg/dL Calculated Osmolality 292 (280-300) Lactic Acid (0.5-2.2) mmol/L Calcium 9.1 (8.6-10.3) mg/dL Total Bilirubin 0.2 L (0.3-1.0) mg/dL Direct Bilirubin 0.1 (0.0-0.2) mg/dL Indirect Bilirubin 0.1 (0.0-1.2) mg/dL AST 33 (13-39) Units/L ALT 43 (7-52) Units/L Alkaline Phosphatase 70 (34-104) Units/L Ammonia 174 H (16-53) mcmol/L Creatine Kinase 171 (30-223) Units/L Troponin I < 0.03 (< 0.04) ng/mL Serum Total Protein 7.8 (6.4-8.9) g/dL Albumin 4.7 (3.5-5.7) g/dL Globulin 3.1 (2.4-3.5) g/dL Albumin/Globulin Ratio 1.5 (1.1-2.2) TSH Free T4 (0.70-2.00) ng/dl Urine Color (Yellow) Urine Clarity (Clear) Urine pH (5.0-8.0) pH Units Ur Specific [place] (1.010-1.025) Urine Protein (Neg-Trace) mg/dL Urine Glucose (UA) (Normal) mg/dL Urine Ketones (Negative) mg/dL Urine Blood (Negative) Urine Nitrite (Negative) Urine Bilirubin (Negative) Urine Urobilinogen (Normal) mg/dL Ur Leukocyte Esterase (Negative) Urine Microscopic RBC (0-3) per hpf Urine Microscopic WBC (0-3) per hpf Ur Squamous Epith Cells (None-Few) per lpf Urine Bacteria (None-Few) per hpf Hyaline Casts (None-Few) per lpf Ur Culture Indicated? (NO) Urine Test (Negative) Salicylates (15.0-30.0) mg/dL Urine Opiates Screen (Woptwa=151) ng/mL Acetaminophen (10-20) mcg/mL Ur Barbiturates Screen (Exmvsz=457) ng/mL Ur Phencyclidine Scrn (Cutoff=25) ng/mL Ur Amphetamines Screen (Vdzyfw=1782) ng/mL U Benzodiazepines Scrn (Txbtdx=171) ng/mL Urine Cocaine Screen (Cutoff= 300) ng/mL U Marijuana (THC) Screen (Cutoff = 50) ng/mL Ur Drug Screen Interp Ethyl Alcohol < 10 (Less than 10) mg/dL Hepatitis A IgM Ab Nonreactive (Nonreactive) Hep Bs Antigen Nonreactive (Nonreactive) Hep B Core IgM Ab Nonreactive (Nonreactive) Hepatitis C Ab Screen Reactive H (Nonreactive) 08/04/18 08/04/18 08/04/18 Range/Units 16:06 16:06 16:06 WBC (4.3-11.1) K/mcL RBC (3.82-4.97) M/mcL Hgb (11.5-15.4) g/dL Hct (35.3-44.9) % MCV (83.0-100.0) fL MCH (28.0-33.3) pg MCHC (31.6-35.5) g/dL RDW (11.5-14.5) % Plt Count (140-400) K/mcL MPV (9.4-12.4) fL Immature Gran % (0-4) % Seg Neutrophils % % Lymphocytes % % Monocytes % % Eosinophils % % Basophils % % Neutrophils # (1.6-8.9) K/mcL Lymphocytes # (0.6-4.6) K/mcL Monocytes # (0.0-1.3) K/mcL Eosinophils # (0.0-0.6) K/mcL Basophils # (0.0-0.2) K/mcL PT (9.4-12.1) Seconds INR APTT (26.0-36.0) Seconds Sodium (136-145) mEq/L Potassium (3.5-5.1) mEq/L Chloride (98-107) mEq/L Carbon Dioxide (23-29) mEq/L BUN (6-20) mg/dL Creatinine (0.60-1.20) mg/dL Est GFR ( Amer) (> 60) Est GFR (Non-Af Amer) (> 60) BUN/Creatinine Ratio (6-26) Glucose (70-105) mg/dL Calculated Osmolality (280-300) Lactic Acid 3.4 H (0.5-2.2) mmol/L Calcium (8.6-10.3) mg/dL Total Bilirubin (0.3-1.0) mg/dL Direct Bilirubin (0.0-0.2) mg/dL Indirect Bilirubin (0.0-1.2) mg/dL AST (13-39) Units/L ALT (7-52) Units/L Alkaline Phosphatase (34-104) Units/L Ammonia 52 (16-53) mcmol/L Creatine Kinase (30-223) Units/L Troponin I (< 0.04) ng/mL Serum Total Protein (6.4-8.9) g/dL Albumin (3.5-5.7) g/dL Globulin (2.4-3.5) g/dL Albumin/Globulin Ratio (1.1-2.2) TSH Cancelled Free T4 (0.70-2.00) ng/dl Urine Color (Yellow) Urine Clarity (Clear) Urine pH (5.0-8.0) pH Units Ur Specific [place] (1.010-1.025) Urine Protein (Neg-Trace) mg/dL Urine Glucose (UA) (Normal) mg/dL Urine Ketones (Negative) mg/dL Urine Blood (Negative) Urine Nitrite (Negative) Urine Bilirubin (Negative) Urine Urobilinogen (Normal) mg/dL Ur Leukocyte Esterase (Negative) Urine Microscopic RBC (0-3) per hpf Urine Microscopic WBC (0-3) per hpf Ur Squamous Epith Cells (None-Few) per lpf Urine Bacteria (None-Few) per hpf Hyaline Casts (None-Few) per lpf Ur Culture Indicated? (NO) Urine Test (Negative) Salicylates < 2.5 L (15.0-30.0) mg/dL Urine Opiates Screen (Mxebxx=095) ng/mL Acetaminophen < 10 L (10-20) mcg/mL Ur Barbiturates Screen (Dupqmn=981) ng/mL Ur Phencyclidine Scrn (Cutoff=25) ng/mL Ur Amphetamines Screen (Kbrifu=4396) ng/mL U Benzodiazepines Scrn (Bepwbw=938) ng/mL Urine Cocaine Screen (Cutoff= 300) ng/mL U Marijuana (THC) Screen (Cutoff = 50) ng/mL Ur Drug Screen Interp Ethyl Alcohol (Less than 10) mg/dL Hepatitis A IgM Ab (Nonreactive) Hep Bs Antigen (Nonreactive) Hep B Core IgM Ab (Nonreactive) Hepatitis C Ab Screen (Nonreactive) 08/04/18 08/04/18 08/04/18 Range/Units 17:02 17:02 17:43 WBC (4.3-11.1) K/mcL RBC (3.82-4.97) M/mcL Hgb (11.5-15.4) g/dL Hct (35.3-44.9) % MCV (83.0-100.0) fL MCH (28.0-33.3) pg MCHC (31.6-35.5) g/dL RDW (11.5-14.5) % Plt Count (140-400) K/mcL MPV (9.4-12.4) fL Immature Gran % (0-4) % Seg Neutrophils % % Lymphocytes % % Monocytes % % Eosinophils % % Basophils % % Neutrophils # (1.6-8.9) K/mcL Lymphocytes # (0.6-4.6) K/mcL Monocytes # (0.0-1.3) K/mcL Eosinophils # (0.0-0.6) K/mcL Basophils # (0.0-0.2) K/mcL PT (9.4-12.1) Seconds INR APTT (26.0-36.0) Seconds Sodium (136-145) mEq/L Potassium (3.5-5.1) mEq/L Chloride (98-107) mEq/L Carbon Dioxide (23-29) mEq/L BUN (6-20) mg/dL Creatinine (0.60-1.20) mg/dL Est GFR ( Amer) (> 60) Est GFR (Non-Af Amer) (> 60) BUN/Creatinine Ratio (6-26) Glucose (70-105) mg/dL Calculated Osmolality (280-300) Lactic Acid (0.5-2.2) mmol/L Calcium (8.6-10.3) mg/dL Total Bilirubin (0.3-1.0) mg/dL Direct Bilirubin (0.0-0.2) mg/dL Indirect Bilirubin (0.0-1.2) mg/dL AST (13-39) Units/L ALT (7-52) Units/L Alkaline Phosphatase (34-104) Units/L Ammonia (16-53) mcmol/L Creatine Kinase (30-223) Units/L Troponin I (< 0.04) ng/mL Serum Total Protein (6.4-8.9) g/dL Albumin (3.5-5.7) g/dL Globulin (2.4-3.5) g/dL Albumin/Globulin Ratio (1.1-2.2) TSH 7.318 H Free T4 0.93 (0.70-2.00) ng/dl Urine Color Dark Yellow (Yellow) Urine Clarity Clear (Clear) Urine pH 5.0 (5.0-8.0) pH Units Ur Specific [place] >= 1.030 H (1.010-1.025) Urine Protein Trace (Neg-Trace) mg/dL Urine Glucose (UA) Normal (Normal) mg/dL Urine Ketones Trace H (Negative) mg/dL Urine Blood Moderate H (Negative) Urine Nitrite Positive A (Negative) Urine Bilirubin Small H (Negative) Urine Urobilinogen Normal (Normal) mg/dL Ur Leukocyte Esterase Trace H (Negative) Urine Microscopic RBC 0-3 (0-3) per hpf Urine Microscopic WBC 15-30 H (0-3) per hpf Ur Squamous Epith Cells Many H (None-Few) per lpf Urine Bacteria Moderate H (None-Few) per hpf Hyaline Casts Moderate H (None-Few) per lpf Ur Culture Indicated? YES A (NO) Urine Test Negative (Negative) Salicylates (15.0-30.0) mg/dL Urine Opiates Screen (Jfwzdx=090) ng/mL Acetaminophen (10-20) mcg/mL Ur Barbiturates Screen (Mbftnw=720) ng/mL Ur Phencyclidine Scrn (Cutoff=25) ng/mL Ur Amphetamines Screen (Cxgbqq=2781) ng/mL U Benzodiazepines Scrn (Ghcgbd=690) ng/mL Urine Cocaine Screen (Cutoff= 300) ng/mL U Marijuana (THC) Screen (Cutoff = 50) ng/mL Ur Drug Screen Interp Ethyl Alcohol (Less than 10) mg/dL Hepatitis A IgM Ab (Nonreactive) Hep Bs Antigen (Nonreactive) Hep B Core IgM Ab (Nonreactive) Hepatitis C Ab Screen (Nonreactive) - Radiology Data Radiology results reviewed: Yes I reviewed the patient's radiology results. Chest X-Ray 08/04/18 15:10 IMPRESSION: No acute process. D/ / Raymond Patino MD / Raymond Patino MD Interpreting Provider: Raymond Patino MD Head CT 08/04/18 15:11 IMPRESSION: No acute intracranial abnormality. D/ / Ant Coronel MD / Ant Coronel MD Interpreting Provider: Ant Coronel MD Cervical Spine CT 08/04/18 15:14 IMPRESSION: No acute abnormality of the cervical spine. Stable mild reversal of normal cervical lordosis-unchanged from 2012. Minimal or early degenerative disc changes from C5 through C7. D/ / Albaro Perry MD / Albaro Perry MD Interpreting Provider: Albaro Perry MD - EKG Data EKG attestation: Yes I reviewed and interpreted this EKG. EKG results narrative: Patient EKG shows a sinus tachycardia at a heart rate of 1 15 bpm, DE interval of 153 ms, QR sikh 91 ms, QT/QTc interval 330/457 ms respectively. There are mild ST segment elevations noted in lead aVR with depressions noted in lead V3 through V5, all changes or less than 1 mm and do not meet acute ischemic criteria in. There are no pathologic Q waves, no abnormal T-wave inversions, nor any signs acute ischemic change. This EKG performed today is generally consistent with prior EKG performed on 09/04/2017. TPA Checklist - LKW: 3-4.5 hrs Add. Warnings/Precautions Patient/family understanding: The patient/family members have been counseled and understood the risk, benefit, and alternatives of treatment.
--- NOTE | 2018-08-04 15:24 | Emergency Department Note ---
Disposition Clinical Impression: Altered mental status Qualifiers: Altered mental status type: unspecified Qualified Code(s): R41.82 - Altered mental status, unspecified Disposition: Admitted As Inpatient Condition: Serious Time of Disposition: 19:37 General Adult HPI - General Chief complaint: ED Altered Mental Status Stated complaint: AMS Time Seen by Provider: 08/04/18 15:10 - Related Data Home Medications Medication Instructions Recorded Confirmed Levothyroxine Sodium [Levoxyl] 100 mcg PO DAILY 09/04/17 09/04/17 Medroxyprogesterone Acetate 150 mg IM Q3M 09/04/17 09/04/17 [DEPO-Provera] Sertraline [Zoloft] 50 mg PO DAILY 09/04/17 09/04/17 Allergies Allergy/AdvReac Type Severity Reaction Status Date / Time vancomycin Allergy Intermediate Hives Verified 03/22/17 09:06 Past Medical History - Past Medical History Medical history: Reports: hepatitis, thyroid disease Surgical history: Reports: no surgical history Psychiatric history: Reports: anxiety, depression, PTSD 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 history - Social History Smoking Status: Current every day smoker Smokeless Tobacco Status: No Alcohol use: Reports: none Drug use: Reports: none Course Vital Signs Temperature 98.8 F 08/04/18 15:14 Pulse Rate 120 08/04/18 15:14 Respiratory Rate 14 08/04/18 15:14 Blood Pressure 123/79 08/04/18 15:14 O2 Sat by Pulse Oximetry 100 08/04/18 15:14 Temperature 98.2 F 08/04/18 17:49 Pulse Rate 101 08/04/18 19:16 Respiratory Rate 16 08/04/18 19:16 Blood Pressure 119/82 08/04/18 19:16 O2 Sat by Pulse Oximetry 99 08/04/18 19:17 Oxygen Delivery Oxygen Delivery Room Air Medical Decision Making - Lab Data Result diagrams: 08/04/18 15:10 08/04/18 15:10 Lab Results 08/04/18 08/04/18 08/04/18 Range/Units 15:10 15:10 15:10 WBC 11.1 (4.3-11.1) K/mcL RBC 4.45 (3.82-4.97) M/mcL Hgb 14.3 (11.5-15.4) g/dL Hct 45.1 H (35.3-44.9) % MCV 101.3 H (83.0-100.0) fL MCH 32.1 (28.0-33.3) pg MCHC 31.7 (31.6-35.5) g/dL RDW 12.3 (11.5-14.5) % Plt Count 309 (140-400) K/mcL MPV 8.6 L (9.4-12.4) fL Immature Gran % 0.3 (0-4) % Seg Neutrophils % 41.4 % Lymphocytes % 45.5 % Monocytes % 8.3 % Eosinophils % 3.7 % Basophils % 0.8 % Neutrophils # 4.6 (1.6-8.9) K/mcL Lymphocytes # 5.0 H (0.6-4.6) K/mcL Monocytes # 0.9 (0.0-1.3) K/mcL Eosinophils # 0.4 (0.0-0.6) K/mcL Basophils # 0.1 (0.0-0.2) K/mcL PT 10.6 (9.4-12.1) Seconds INR 0.9 APTT 38.5 H (26.0-36.0) Seconds Sodium (136-145) mEq/L Potassium (3.5-5.1) mEq/L Chloride (98-107) mEq/L Carbon Dioxide (23-29) mEq/L BUN (6-20) mg/dL Creatinine (0.60-1.20) mg/dL Est GFR ( Amer) (> 60) Est GFR (Non-Af Amer) (> 60) BUN/Creatinine Ratio (6-26) Glucose (70-105) mg/dL Calculated Osmolality (280-300) Lactic Acid (0.5-2.2) mmol/L Calcium (8.6-10.3) mg/dL Total Bilirubin (0.3-1.0) mg/dL Direct Bilirubin (0.0-0.2) mg/dL Indirect Bilirubin (0.0-1.2) mg/dL AST (13-39) Units/L ALT (7-52) Units/L Alkaline Phosphatase (34-104) Units/L Ammonia (16-53) mcmol/L Creatine Kinase (30-223) Units/L Troponin I (< 0.04) ng/mL Serum Total Protein (6.4-8.9) g/dL Albumin (3.5-5.7) g/dL Globulin (2.4-3.5) g/dL Albumin/Globulin Ratio (1.1-2.2) TSH Urine Color (Yellow) Urine Clarity (Clear) Urine pH (5.0-8.0) pH Units Ur Specific [place] (1.010-1.025) Urine Protein (Neg-Trace) mg/dL Urine Glucose (UA) (Normal) mg/dL Urine Ketones (Negative) mg/dL Urine Blood (Negative) Urine Nitrite (Negative) Urine Bilirubin (Negative) Urine Urobilinogen (Normal) mg/dL Ur Leukocyte Esterase (Negative) Urine Microscopic RBC (0-3) per hpf Urine Microscopic WBC (0-3) per hpf Ur Squamous Epith Cells (None-Few) per lpf Urine Bacteria (None-Few) per hpf Hyaline Casts (None-Few) per lpf Ur Culture Indicated? (NO) Urine Test (Negative) Salicylates (15.0-30.0) mg/dL Urine Opiates Screen Negative (Qfbwrc=845) ng/mL Acetaminophen (10-20) mcg/mL Ur Barbiturates Screen Negative (Gawyyi=595) ng/mL Ur Phencyclidine Scrn Negative (Cutoff=25) ng/mL Ur Amphetamines Screen Positive H (Zwgkhc=7457) ng/mL U Benzodiazepines Scrn Negative (Dbpkvg=956) ng/mL Urine Cocaine Screen Negative (Cutoff= 300) ng/mL U Marijuana (THC) Screen Negative (Cutoff = 50) ng/mL Ur Drug Screen Interp See Below Ethyl Alcohol (Less than 10) mg/dL Hepatitis A IgM Ab (Nonreactive) Hep Bs Antigen (Nonreactive) Hep B Core IgM Ab (Nonreactive) Hepatitis C Ab Screen (Nonreactive) 08/04/18 08/04/18 08/04/18 Range/Units 15:10 15:10 15:10 WBC (4.3-11.1) K/mcL RBC (3.82-4.97) M/mcL Hgb (11.5-15.4) g/dL Hct (35.3-44.9) % MCV (83.0-100.0) fL MCH (28.0-33.3) pg MCHC (31.6-35.5) g/dL RDW (11.5-14.5) % Plt Count (140-400) K/mcL MPV (9.4-12.4) fL Immature Gran % (0-4) % Seg Neutrophils % % Lymphocytes % % Monocytes % % Eosinophils % % Basophils % % Neutrophils # (1.6-8.9) K/mcL Lymphocytes # (0.6-4.6) K/mcL Monocytes # (0.0-1.3) K/mcL Eosinophils # (0.0-0.6) K/mcL Basophils # (0.0-0.2) K/mcL PT (9.4-12.1) Seconds INR APTT (26.0-36.0) Seconds Sodium 140 (136-145) mEq/L Potassium 3.5 (3.5-5.1) mEq/L Chloride 104 (98-107) mEq/L Carbon Dioxide 18 L (23-29) mEq/L BUN 17 (6-20) mg/dL Creatinine 0.97 (0.60-1.20) mg/dL Est GFR ( Amer) > 60 (> 60) Est GFR (Non-Af Amer) > 60 (> 60) BUN/Creatinine Ratio 18 (6-26) Glucose 102 (70-105) mg/dL Calculated Osmolality 292 (280-300) Lactic Acid (0.5-2.2) mmol/L Calcium 9.1 (8.6-10.3) mg/dL Total Bilirubin 0.2 L (0.3-1.0) mg/dL Direct Bilirubin 0.1 (0.0-0.2) mg/dL Indirect Bilirubin 0.1 (0.0-1.2) mg/dL AST 33 (13-39) Units/L ALT 43 (7-52) Units/L Alkaline Phosphatase 70 (34-104) Units/L Ammonia 174 H (16-53) mcmol/L Creatine Kinase 171 (30-223) Units/L Troponin I < 0.03 (< 0.04) ng/mL Serum Total Protein 7.8 (6.4-8.9) g/dL Albumin 4.7 (3.5-5.7) g/dL Globulin 3.1 (2.4-3.5) g/dL Albumin/Globulin Ratio 1.5 (1.1-2.2) TSH Urine Color (Yellow) Urine Clarity (Clear) Urine pH (5.0-8.0) pH Units Ur Specific [place] (1.010-1.025) Urine Protein (Neg-Trace) mg/dL Urine Glucose (UA) (Normal) mg/dL Urine Ketones (Negative) mg/dL Urine Blood (Negative) Urine Nitrite (Negative) Urine Bilirubin (Negative) Urine Urobilinogen (Normal) mg/dL Ur Leukocyte Esterase (Negative) Urine Microscopic RBC (0-3) per hpf Urine Microscopic WBC (0-3) per hpf Ur Squamous Epith Cells (None-Few) per lpf Urine Bacteria (None-Few) per hpf Hyaline Casts (None-Few) per lpf Ur Culture Indicated? (NO) Urine Test (Negative) Salicylates (15.0-30.0) mg/dL Urine Opiates Screen (Xdwxdl=553) ng/mL Acetaminophen (10-20) mcg/mL Ur Barbiturates Screen (Yuqwlp=865) ng/mL Ur Phencyclidine Scrn (Cutoff=25) ng/mL Ur Amphetamines Screen (Klnpgf=8405) ng/mL U Benzodiazepines Scrn (Lfdtbh=708) ng/mL Urine Cocaine Screen (Cutoff= 300) ng/mL U Marijuana (THC) Screen (Cutoff = 50) ng/mL Ur Drug Screen Interp Ethyl Alcohol < 10 (Less than 10) mg/dL Hepatitis A IgM Ab Nonreactive (Nonreactive) Hep Bs Antigen Nonreactive (Nonreactive) Hep B Core IgM Ab Nonreactive (Nonreactive) Hepatitis C Ab Screen Reactive H (Nonreactive) 08/04/18 08/04/18 08/04/18 Range/Units 16:06 16:06 16:06 WBC (4.3-11.1) K/mcL RBC (3.82-4.97) M/mcL Hgb (11.5-15.4) g/dL Hct (35.3-44.9) % MCV (83.0-100.0) fL MCH (28.0-33.3) pg MCHC (31.6-35.5) g/dL RDW (11.5-14.5) % Plt Count (140-400) K/mcL MPV (9.4-12.4) fL Immature Gran % (0-4) % Seg Neutrophils % % Lymphocytes % % Monocytes % % Eosinophils % % Basophils % % Neutrophils # (1.6-8.9) K/mcL Lymphocytes # (0.6-4.6) K/mcL Monocytes # (0.0-1.3) K/mcL Eosinophils # (0.0-0.6) K/mcL Basophils # (0.0-0.2) K/mcL PT (9.4-12.1) Seconds INR APTT (26.0-36.0) Seconds Sodium (136-145) mEq/L Potassium (3.5-5.1) mEq/L Chloride (98-107) mEq/L Carbon Dioxide (23-29) mEq/L BUN (6-20) mg/dL Creatinine (0.60-1.20) mg/dL Est GFR ( Amer) (> 60) Est GFR (Non-Af Amer) (> 60) BUN/Creatinine Ratio (6-26) Glucose (70-105) mg/dL Calculated Osmolality (280-300) Lactic Acid 3.4 H (0.5-2.2) mmol/L Calcium (8.6-10.3) mg/dL Total Bilirubin (0.3-1.0) mg/dL Direct Bilirubin (0.0-0.2) mg/dL Indirect Bilirubin (0.0-1.2) mg/dL AST (13-39) Units/L ALT (7-52) Units/L Alkaline Phosphatase (34-104) Units/L Ammonia 52 (16-53) mcmol/L Creatine Kinase (30-223) Units/L Troponin I (< 0.04) ng/mL Serum Total Protein (6.4-8.9) g/dL Albumin (3.5-5.7) g/dL Globulin (2.4-3.5) g/dL Albumin/Globulin Ratio (1.1-2.2) TSH Cancelled Urine Color (Yellow) Urine Clarity (Clear) Urine pH (5.0-8.0) pH Units Ur Specific [place] (1.010-1.025) Urine Protein (Neg-Trace) mg/dL Urine Glucose (UA) (Normal) mg/dL Urine Ketones (Negative) mg/dL Urine Blood (Negative) Urine Nitrite (Negative) Urine Bilirubin (Negative) Urine Urobilinogen (Normal) mg/dL Ur Leukocyte Esterase (Negative) Urine Microscopic RBC (0-3) per hpf Urine Microscopic WBC (0-3) per hpf Ur Squamous Epith Cells (None-Few) per lpf Urine Bacteria (None-Few) per hpf Hyaline Casts (None-Few) per lpf Ur Culture Indicated? (NO) Urine Test (Negative) Salicylates < 2.5 L (15.0-30.0) mg/dL Urine Opiates Screen (Gmzidp=176) ng/mL Acetaminophen < 10 L (10-20) mcg/mL Ur Barbiturates Screen (Gkydbb=297) ng/mL Ur Phencyclidine Scrn (Cutoff=25) ng/mL Ur Amphetamines Screen (Lonsrw=2717) ng/mL U Benzodiazepines Scrn (Hcgwip=337) ng/mL Urine Cocaine Screen (Cutoff= 300) ng/mL U Marijuana (THC) Screen (Cutoff = 50) ng/mL Ur Drug Screen Interp Ethyl Alcohol (Less than 10) mg/dL Hepatitis A IgM Ab (Nonreactive) Hep Bs Antigen (Nonreactive) Hep B Core IgM Ab (Nonreactive) Hepatitis C Ab Screen (Nonreactive) 08/04/18 08/04/18 08/04/18 Range/Units 17:02 17:02 17:43 WBC (4.3-11.1) K/mcL RBC (3.82-4.97) M/mcL Hgb (11.5-15.4) g/dL Hct (35.3-44.9) % MCV (83.0-100.0) fL MCH (28.0-33.3) pg MCHC (31.6-35.5) g/dL RDW (11.5-14.5) % Plt Count (140-400) K/mcL MPV (9.4-12.4) fL Immature Gran % (0-4) % Seg Neutrophils % % Lymphocytes % % Monocytes % % Eosinophils % % Basophils % % Neutrophils # (1.6-8.9) K/mcL Lymphocytes # (0.6-4.6) K/mcL Monocytes # (0.0-1.3) K/mcL Eosinophils # (0.0-0.6) K/mcL Basophils # (0.0-0.2) K/mcL PT (9.4-12.1) Seconds INR APTT (26.0-36.0) Seconds Sodium (136-145) mEq/L Potassium (3.5-5.1) mEq/L Chloride (98-107) mEq/L Carbon Dioxide (23-29) mEq/L BUN (6-20) mg/dL Creatinine (0.60-1.20) mg/dL Est GFR ( Amer) (> 60) Est GFR (Non-Af Amer) (> 60) BUN/Creatinine Ratio (6-26) Glucose (70-105) mg/dL Calculated Osmolality (280-300) Lactic Acid (0.5-2.2) mmol/L Calcium (8.6-10.3) mg/dL Total Bilirubin (0.3-1.0) mg/dL Direct Bilirubin (0.0-0.2) mg/dL Indirect Bilirubin (0.0-1.2) mg/dL AST (13-39) Units/L ALT (7-52) Units/L Alkaline Phosphatase (34-104) Units/L Ammonia (16-53) mcmol/L Creatine Kinase (30-223) Units/L Troponin I (< 0.04) ng/mL Serum Total Protein (6.4-8.9) g/dL Albumin (3.5-5.7) g/dL Globulin (2.4-3.5) g/dL Albumin/Globulin Ratio (1.1-2.2) TSH 7.318 H Urine Color Dark Yellow (Yellow) Urine Clarity Clear (Clear) Urine pH 5.0 (5.0-8.0) pH Units Ur Specific [place] >= 1.030 H (1.010-1.025) Urine Protein Trace (Neg-Trace) mg/dL Urine Glucose (UA) Normal (Normal) mg/dL Urine Ketones Trace H (Negative) mg/dL Urine Blood Moderate H (Negative) Urine Nitrite Positive A (Negative) Urine Bilirubin Small H (Negative) Urine Urobilinogen Normal (Normal) mg/dL Ur Leukocyte Esterase Trace H (Negative) Urine Microscopic RBC 0-3 (0-3) per hpf Urine Microscopic WBC 15-30 H (0-3) per hpf Ur Squamous Epith Cells Many H (None-Few) per lpf Urine Bacteria Moderate H (None-Few) per hpf Hyaline Casts Moderate H (None-Few) per lpf Ur Culture Indicated? YES A (NO) Urine Test Negative (Negative) Salicylates (15.0-30.0) mg/dL Urine Opiates Screen (Cdrwti=339) ng/mL Acetaminophen (10-20) mcg/mL Ur Barbiturates Screen (Yojsdi=852) ng/mL Ur Phencyclidine Scrn (Cutoff=25) ng/mL Ur Amphetamines Screen (Oyoikp=9393) ng/mL U Benzodiazepines Scrn (Iwiita=424) ng/mL Urine Cocaine Screen (Cutoff= 300) ng/mL U Marijuana (THC) Screen (Cutoff = 50) ng/mL Ur Drug Screen Interp Ethyl Alcohol (Less than 10) mg/dL Hepatitis A IgM Ab (Nonreactive) Hep Bs Antigen (Nonreactive) Hep B Core IgM Ab (Nonreactive) Hepatitis C Ab Screen (Nonreactive) Attestation Statement - Attestation Attestation: I examined this patient and my medical decision-making was reviewed with the Resident Physician. I agree with the documented findings, disposition and treatment plan as described except to the extent set forth below. Patient presents to the emergency Department with altered mental status. She is accompanied by her friend. They were on the way to the ED for her friend to be seen as a patient. She went unresponsive in the car. Patient wanted her social services analyst. She has a history of polysubstance abuse. She is also recently in a psychiatric facility for a suicide attempt. Patient was evaluated in the passenger seat of the car. Eyes closed but responded to painful stimulus. B rought to the trauma room. Patient is awake alert and slurring her words. Pupils 3 and react. No abrasions, ecchymosis, or obvious signs of trauma. Abdomen is soft and lungs are clear. She is able to move all extremities. Plan. Altered mental status workup. Patient speaks over this time as the friend does have concern for possible suicide attempt. Patient awake and alert. There was some question of a possible seizure. This would account for her elevated lactic acid. Patient is admitted to medicine for observation. There is a pink slip on her chart as she will need a psychiatric evaluation as well. EKG was reviewed with the resident. Chest X-Ray 08/04/18 15:10 IMPRESSION: No acute process. D/ / Raymond Patino MD / Raymond Patino MD Interpreting Provider: Raymond Patino MD Head CT 08/04/18 15:11 IMPRESSION: No acute intracranial abnormality. D/ / Ant Coronel MD / Ant Coronel MD Interpreting Provider: Ant Coronel MD Cervical Spine CT 08/04/18 15:14 IMPRESSION: No acute abnormality of the cervical spine. Stable mild reversal of normal cervical lordosis-unchanged from 2012. Minimal or early degenerative disc changes from C5 through C7. D/ / Albaro Perry MD / Albaro Perry MD Interpreting Provider: Albaro Perry MD
[2018-08-04 15:25] LABS: Basophils # 0.1 K/mcL (0.0-0.2); Basophils % 0.8 %; Eosinophils # 0.4 K/mcL (0.0-0.6); Eosinophils % 3.7 %; Hematocrit 45.1 % (35.3-44.9); Hemoglobin 14.3 g/dL (11.5-15.4); Immature Granulocytes % 0.3 % (0-4); Lymphocytes % 45.5 %; Mean Corpuscular HGB Conc 31.7 g/dL (31.6-35.5); Mean Corpuscular Hemoglobin 32.1 pg (28.0-33.3); Mean Corpuscular Volume 101.3 fL (83.0-100.0); Mean Platelet Volume 8.6 fL (9.4-12.4); Monocytes # 0.9 K/mcL (0.0-1.3); Monocytes % 8.3 %; Neutrophils # 4.6 K/mcL (1.6-8.9); Platelet Count 309 K/mcL (140-400); Red Blood Count 4.45 M/mcL (3.82-4.97); Red Cell Distribution Width 12.3 % (11.5-14.5); Segmented Neutrophils % 41.4 %; White Blood Count 11.1 K/mcL (4.3-11.1)
[2018-08-04 15:37] LABS: INR 0.9; Prothrombin Time 10.6 Seconds (9.4-12.1)
[2018-08-04 15:40] LABS: Activated Partial Thrombo Time 38.5 Seconds (26.0-36.0)
[2018-08-04] MEDS ORDERED: 0.9 % Sodium Chloride 1,000 ML ONE (15:51)
[2018-08-04 15:55] LABS: Alanine Aminotransferase 43 Units/L (7-52); Albumin 4.7 g/dL (3.5-5.7); Albumin/Globulin Ratio 1.5 (1.1-2.2); Alkaline Phosphatase 70 Units/L (34-104); Aspartate Amino Transferase 33 Units/L (13-39); BUN/Creatinine Ratio 18 (6-26); Bilirubin,Direct 0.1 mg/dL (0.0-0.2); Bilirubin,Indirect 0.1 mg/dL (0.0-1.2); Bilirubin,Total 0.2 mg/dL (0.3-1.0); Blood Urea Nitrogen 17 mg/dL (6-20); Calcium 9.1 mg/dL (8.6-10.3); Carbon Dioxide 18 mEq/L (23-29); Chloride 104 mEq/L (98-107); Creatine Kinase 171 Units/L (30-223); Ethanol < 10 mg/dL (Less than 10); Globulin 3.1 g/dL (2.4-3.5); Glucose 102 mg/dL (70-105); Osmolality,Calculated 292 (280-300); Potassium 3.5 mEq/L (3.5-5.1); Sodium 140 mEq/L (136-145); Total Protein 7.8 g/dL (6.4-8.9); Troponin I < 0.03 ng/mL (< 0.04); eGFR For African Americans > 60 (> 60); eGFR For Non-African Americans > 60 (> 60)
[2018-08-04] MEDS ORDERED: 0.9 % Sodium Chloride 500 ML IVC ONE (16:55)
[2018-08-04 17:15] LABS: Acetaminophen < 10 mcg/mL (10-20); Salicylate < 2.5 mg/dL (15.0-30.0)
[2018-08-04 17:24] LABS: Hepatitis B Surface Antigen Nonreactive (Nonreactive)
[2018-08-04 17:38] LABS: Amphetamine Screen,Urine Positive ng/mL (Cutoff=1000); Barbiturate Screen,Urine Negative ng/mL (Cutoff=200); Benzodiazepines Screen,Urine Negative ng/mL (Cutoff=200); Cannabinoid Screen,Urine Negative ng/mL (Cutoff = 50); Cocaine Screen,Urine Negative ng/mL (Cutoff= 300); Opiate Screen,Urine Negative ng/mL (Cutoff=300); Phencyclidine Screen,Urine Negative ng/mL (Cutoff=25)
[2018-08-04 17:50] LABS: Bilirubin,Urine Small (Negative); Blood,Urine Moderate (Negative); Clarity,Urine Clear (Clear); Glucose,Urine (UA) Normal (Normal); Ketones,Urine Trace mg/dL (Negative); Leukocyte Esterase,Urine Trace (Negative); Nitrite,Urine Positive (Negative); Protein,Urine Trace mg/dL (Neg-Trace); Specific Gravity,Urine >= 1.030 (1.010-1.025); Urobilinogen,Urine Normal (Normal)
[2018-08-04 17:51] LABS: Color,Urine Dark Yellow (Yellow)
[2018-08-04 17:53] LABS: Hepatitis B Core IgM Nonreactive (Nonreactive)
[2018-08-04 17:54] LABS: Bacteria,Urine Moderate per hpf (None-Few); Hyaline Casts,Urine Moderate per lpf (None-Few); RBC,Urine 0-3 per hpf (0-3); Squamous Epithelial Cell,Urine Many per lpf (None-Few); WBC,Urine 15-30 per hpf (0-3)
[2018-08-04 17:54] LABS: Hepatitis A Antibody IgM Nonreactive (Nonreactive)
--- NOTE | 2018-08-04 18:39 | Internal Med History&Physical ---
Date of Encounter: 08/04/18 Time of Encounter: 18:00 Internal Medicine - H&P: HPI Chief complaint: Confusion Admitted From: Home Plans for Post Hospital Care: Home History of present illness: Patient is a 28-year-old female who reports a past medical history hepatitis C, drug abuse and mood disorder with recent inpatient psychiatric stay due to suicidal ideation approximately 3 weeks ago who presents due to confusion. Patient not able to give history but apparently she was witnessed in the parking lot with seizure activity and noted confusion on admission to the ER. In the ER patient head CT was negative for acute findings and urinalysis positive for pyuria; urine cultures pending. Patients urine drug tox was positive for amphetamines and patient admitted to using methamphetamine. She will be admitted to the medical surgical floor for observation. Past Med Surg Social Fam HX - Past Medical History Medical history: hepatitis, thyroid disease Additional medical history: Hepatitis C. Hyperthyroidism Psychiatric history: anxiety, depression, PTSD - Past Surgical History Surgical History: no surgical history - Social History Smoking Status: Current every day smoker Smokeless Tobacco Status: No Alcohol use: none Drug use: methamphetamine - Family History Mother Living Status: Still Living Hx Family Cardiac Disorders: No Hx Family Respiratory Disorders: No Hx Family Cancer: No Hx Family GI Disorders: No Hx Family Endocrine Disorder: No Hx Family Neuromuscular Disorders: No Hx Family Neurologic Disorders: No Hx Family HEENT Disorders: No Hx Family Autoimmune Disorders: No Internal Medicine - H&P: Meds Levothyroxine Sodium [Levoxyl] 100 mcg PO DAILY 09/04/17 [History] Medroxyprogesterone Acetate [DEPO-Provera] 150 mg IM Q3M 09/04/17 [History] Sertraline [Zoloft] 50 mg PO DAILY 09/04/17 [History] Allergy/AdvReac Type Severity Reaction Status Date / Time vancomycin Allergy Intermediate Hives Verified 03/22/17 09:06 ROS unobtainable: due to mental status All Systems PM: A 10-system review of systems was performed and is negative for pertinent findings except as documented above in the HPI. - Constitutional Vitals: Temp Pulse Resp BP Pulse Ox 98.2 F 85 22 122/92 100 08/04/18 17:49 08/04/18 18:01 08/04/18 17:49 08/04/18 18:01 08/04/18 18:01 Exam: General appearance: Present: A&O X 3, no acute distress - Head Head exam: Present: normocephalic - Eye Eye exam: Present: normal appearance - ENT ENT exam: Present: mucous membranes moist - Respiratory Respiratory exam: Present: CTAB. Absent: accessory muscle use, rales, rhonchi, wheezes - Cardiovascular Cardiovascular exam: Present: RRR, +S1, +S2. Absent: diastolic murmur, gallop, rubs, systolic murmur - GI/Abdominal GI/Abdominal exam: Present: normal bowel sounds, soft, no peritoneal signs. Absent: distended, tenderness - Extremities Exam Extremities exam: Absent: pedal edema - Neurological Exam Neurological exam: Present: alert, oriented X3, no focal deficits. Absent: altered - Psychiatric Psychiatric exam: -normal mood Skin exam: -normal color Internal Med - H&P Results - Labs CBC & Chem 7: 08/04/18 15:10 08/04/18 15:10 Labs: Short CBC 08/04/18 Range/Units 15:10 WBC 11.1 (4.3-11.1) K/mcL Hgb 14.3 (11.5-15.4) g/dL Hct 45.1 H (35.3-44.9) % Plt Count 309 (140-400) K/mcL Neutrophils # 4.6 (1.6-8.9) K/mcL BMP 08/04/18 15:10 Sodium 140 Potassium 3.5 Chloride 104 Carbon Dioxide 18 L BUN 17 Creatinine 0.97 Glucose 102 Calcium 9.1 Cardiac Enzymes 08/04/18 Range/Units 15:10 Troponin I < 0.03 (< 0.04) ng/mL Liver Function 08/04/18 Range/Units 15:10 Total Bilirubin 0.2 L (0.3-1.0) mg/dL Direct Bilirubin 0.1 (0.0-0.2) mg/dL AST 33 (13-39) Units/L ALT 43 (7-52) Units/L Alkaline Phosphatase 70 (34-104) Units/L Albumin 4.7 (3.5-5.7) g/dL Urine 08/04/18 Range/Units 17:02 Urine Color Dark Yellow (Yellow) Urine Clarity Clear (Clear) Urine pH 5.0 (5.0-8.0) pH Units Ur Specific [place] >= 1.030 H (1.010-1.025) Urine Protein Trace (Neg-Trace) mg/dL Urine Glucose (UA) Normal (Normal) mg/dL - Impressions ITS Impressions Chest X-Ray 08/04/18 15:10 IMPRESSION: No acute process. D/ / Raymond Patino MD / Raymond Patino MD Interpreting Provider: Raymond Patino MD Head CT 08/04/18 15:11 IMPRESSION: No acute intracranial abnormality. D/ / Ant Coronel MD / Ant Coronel MD Interpreting Provider: Ant Coronel MD Cervical Spine CT 08/04/18 15:14 IMPRESSION: No acute abnormality of the cervical spine. Stable mild reversal of normal cervical lordosis-unchanged from 2012. Minimal or early degenerative disc changes from C5 through C7. D/ / Albaro Perry MD / Albaro Perry MD Interpreting Provider: Albaro Perry MD - Assessment and Plan (1) Altered mental state Current Visit: Yes Status: Acute Assessment and plan: Patient presented to the ER confusion suspect secondary to methamphetamine use Patient's initial ammonia level was elevated at 174 but repeat 1 hour later was 52 Monitor overnight ordnance equipment worker saw the patient in the ER Qualifiers: Altered mental status type: unspecified Qualified Code(s): R41.82 - Altered mental status, unspecified (2) Methamphetamine abuse Current Visit: Yes Status: Acute Assessment and plan: Urine drug tox positive for amphetamines and patient admits to using methamphetamine ordnance equipment worker saw patient in the ER (3) Seizure-like activity Current Visit: Yes Status: Acute Assessment and plan: Apparently patient had a witnessed seizure in the parking lot per rn social services who was seen patient in the ER Suspect that patient did have a seizure secondary to methamphetamine use; head CT negative for acute findings Will consult neurology however for workup. (4) Hypothyroidism Current Visit: No Status: Acute Assessment and plan: Patient's TSH 7.318 Will obtain free T4 Continue home dose of levothyroxine Qualifiers: Hypothyroidism type: acquired Qualified Code(s): E03.9 - Hypothyroidism, unspecified (5) Hepatitis C Current Visit: No Status: Chronic Assessment and plan: Patient reports a history hepatitis C Liver enzymes within normal limits Qualifiers: Viral hepatitis chronicity: unspecified Qualified Code(s): B19.20 - Unspecified viral hepatitis C without hepatic coma (6) Mood disorder Current Visit: Yes Status: Acute Assessment and plan: Patient reports of recent inpatient psychiatric stay approximately 3 weeks ago for suicidal ideation. Patient denies any suicide ideation today. Continue home medications (7) DVT prophylaxis Current Visit: No Status: Chronic Assessment and plan: Patient able to ambulate - Time Spent With Patient Total time spent is greater than 50% in coordination of care (as documented) at patient's floor/unit and/or counseling patient:
[2018-08-04 18:44] LABS: Thyroid Stimulating Hormone 7.318 mcIU/mL (0.340-5.600)
[2018-08-04] MEDS ORDERED: Naloxone 0.4 MG/ML INJ IVP PRN (18:56)
[2018-08-04] MEDS ORDERED: 0.9 % Sodium Chloride 1,000 ML IVC SCH (19:00)
[2018-08-04 19:08] LABS: Hepatitis C Virus Antibody Reactive (Nonreactive)
[2018-08-04] MEDS ORDERED: cefTRIAXone 1,000 MG in 0.9 % Sodium Chloride Mini Bag 100 ML IVPB ONE (19:36)
[2018-08-04] MEDS ORDERED: tiZANidine 4 MG TABLET PO ONE (23:54)
[2018-08-05] MEDS: 0.9 % Sodium Chloride 1,000 ML IVC SCH ×2 (00:21→06:13)
[2018-08-05] MEDS ORDERED: 0.9 % Sodium Chloride 1,000 ML IVC ONE ×2 (06:08→11:42)
[2018-08-05 06:50] LABS: Basophils # 0.1 K/mcL (0.0-0.2); Basophils % 0.8 %; Eosinophils # 0.2 K/mcL (0.0-0.6); Eosinophils % 3.8 %; Immature Granulocytes % 0.5 % (0-4); Lymphocytes # 2.2 K/mcL (0.6-4.6); Lymphocytes % 36.4 %; Mean Corpuscular HGB Conc 32.8 g/dL (31.6-35.5); Mean Corpuscular Hemoglobin 32.4 pg (28.0-33.3); Mean Corpuscular Volume 98.9 fL (83.0-100.0); Mean Platelet Volume 8.5 fL (9.4-12.4); Monocytes # 0.6 K/mcL (0.0-1.3); Monocytes % 9.1 %; Platelet Count 198 K/mcL (140-400); Red Blood Count 3.64 M/mcL (3.82-4.97); Red Cell Distribution Width 12.3 % (11.5-14.5); Segmented Neutrophils % 49.4 %; White Blood Count 6.1 K/mcL (4.3-11.1)
[2018-08-05 06:52] LABS: Hemoglobin 11.8 g/dL (11.5-15.4)
[2018-08-05 07:03] LABS: Alanine Aminotransferase 27 Units/L (7-52); Albumin 3.2 g/dL (3.5-5.7); Albumin/Globulin Ratio 1.4 (1.1-2.2); Alkaline Phosphatase 49 Units/L (34-104); Aspartate Amino Transferase 22 Units/L (13-39); BUN/Creatinine Ratio 19 (6-26); Bilirubin,Total 0.2 mg/dL (0.3-1.0); Blood Urea Nitrogen 15 mg/dL (6-20); Calcium 8.2 mg/dL (8.6-10.3); Carbon Dioxide 27 mEq/L (23-29); Chloride 110 mEq/L (98-107); Globulin 2.3 g/dL (2.4-3.5); Glucose 87 mg/dL (70-105); Osmolality,Calculated 292 (280-300); Potassium 3.9 mEq/L (3.5-5.1); Sodium 141 mEq/L (136-145); Total Protein 5.5 g/dL (6.4-8.9); eGFR For African Americans > 60 (> 60); eGFR For Non-African Americans > 60 (> 60)
[2018-08-05] MEDS ORDERED: 0.9 % Sodium Chloride 1,000 ML IV ONE (08:26)
--- NOTE | 2018-08-05 10:51 | Neurology - Consult Note ---
Date of Encounter: 08/05/18 Time of Encounter: 10:48 Assessment and Plan (1) Generalized tonic-clonic seizure Current Visit: Yes Status: Acute Patient has apparently experienced a generalized tonic-clonic seizure likely due to the central nervous system stimulating effects of the methamphetamine. She is never had a seizure previously, her neurologic exam is normal, neuroimaging studies were normal. At this juncture I am not inclined to feel that she has epilepsy or will need ongoing antiepileptic medication. Patient at this time however cannot be reasons with an continues to blame external factors for her current situation. I will reevaluate her your request. At this juncture I do not feel that further neuroimaging or electrodiagnostic are necessary. History of Present Illness HPI: The chart was reviewed, the patient was seen and examined. Patient is a 28-year-old woman with a known history of hepatitis C and illicit drug use who is seen for neurologic consultation secondary to a witnessed seizure. Details are not entirely clear however she apparently had a meeting with a drug abuse social worker who witnessed her to have seizure activity in a parking lot. She is brought to the ER for further assessment where a CT of the subject of the head was performed and was normal. Urine tox screen was positive for methamphetamines. Urinalysis was also positive for pyuria. Patient at this time is very upset after having learned that she is "pink slipped" and will have to remain in the hospital for further mental health assessment and observation. Patient has been seizure-free since admission. Past Med Surg Social Fam HX - Past Medical History Medical history: hepatitis, thyroid disease Additional medical history: Hepatitis C. Hyperthyroidism Psychiatric history: anxiety, depression, PTSD, prior suicide attempt - Past Surgical History Surgical History: no surgical history - Social History Smoking Status: Current every day smoker Packs per day: 1 Smokeless Tobacco Status: No Alcohol use: none Drug use: methamphetamine - Family History Mother Living Status: Still Living Hx Family Cardiac Disorders: No Hx Family Respiratory Disorders: No Hx Family Cancer: No Hx Family GI Disorders: No Hx Family Endocrine Disorder: No Hx Family Neuromuscular Disorders: No Hx Family Neurologic Disorders: No Hx Family HEENT Disorders: No Hx Family Autoimmune Disorders: No Father Living Status: Still Living Hx Family Psychosocial Disorders: Yes (DEPRESSION, ETOH ABUSE) Medications and Allergies Levothyroxine Sodium [Levoxyl] 100 mcg PO DAILY 09/04/17 [History] Medroxyprogesterone Acetate [DEPO-Provera] 150 mg IM Q3M 09/04/17 [History] Sertraline [Zoloft] 50 mg PO DAILY 09/04/17 [History] Allergy/AdvReac Type Severity Reaction Status Date / Time vancomycin Allergy Intermediate Hives Verified 03/22/17 09:06 All Systems: The remainder of the systems were reviewed and are negative Review of Systems: The balance of the systems review is negative. Physical Examination - Vital Signs Vital Signs: Initial Vital Signs Temp Pulse Resp BP Pulse Ox 98.8 F 120 14 123/79 100 08/04/18 15:14 08/04/18 15:14 08/04/18 15:14 08/04/18 15:14 08/04/18 15:14 - Exam Exam: General Examination: *CONSTITUTIONAL: normal *GENERAL APPEARANCE OF PATIENT appears distraught, sobbing. *EYES: pupils equal, round, reactive to light and accommodation, conjunctiva clear without masses or ulcerations, fundi normal. *CARDIOVASCULAR no peripheral edema, distal temperature normal, dorsalis pedis pulses normal. Refer to vital signs Musculoskeletal: *GAIT AND STATION normal, with normal Romberg testing, no abnormalities such as broad base gait or spasticity *ASSESSMENT OF MUSCLE STRENGTH IN THE UPPER AND LOWER EXTREMITIES deltoid, bicep, tricep, renderer strength, hip flexors ,anterior tibialis, dorsoflexion of the foot normal. *MUSCLE TONE IN THE UPPER AND LOWER EXTREMITIES normal. No abnormal movements, fasciculations or atrophy identified. Neurological: *ORIENTATION to time and place *RECURRENT AND REMOTE MEMORY intact *ATTENTION AND CONCENTRATION are normal *LANGUAGE FUNCTION no significant aphasia or dysarthia was noted. *FUND OF KNOWLEDGE aware of current events, past history, vocabulary *MENTAL attention span and concentration normal. *CN II optic fundi were normal, no papilledema noted. *CN III,IV, PERRLA extraocular eye movements were full, no nystagmus and no ptosis noted. *CN V shows normal sensation and jaw opens symmetrically. *CN VII shows normal facial movement symmetrically, upper and lower bilaterally. *CN VIII shows no significant hearing loss on examination in the office. *CN IX,,X palate elevated symmetrically and normal gag reflex was noted. *CN XI normal strength in the sternocleidomastoid muscles, symmetrical shoulder shrugging. *CN XII tongue protruded in the midline, with normal strength and movement. *SENSORY EXAMINATION pinprick sensation intact, and light touch(vibration sense). *REFLEXES: deep tendon reflexes were normal and symmetrical , grade 2/4 diffusely, no pathological reflexes were noted. *CEREBELLAR TESTING normal finger to nose, heel/knee/carr, and tandem walk. *PAIN LEVEL 0 Results - Laboratory Findings CBC and BMP: 08/05/18 06:32 08/05/18 06:32 Abnormal lab findings: Abnormal lab results RBC 3.64 M/mcL (3.82-4.97) L 08/05/18 06:32 Hct 45.1 % (35.3-44.9) H 08/04/18 15:10 MCV 101.3 fL (83.0-100.0) H 08/04/18 15:10 MPV 8.5 fL (9.4-12.4) L 08/05/18 06:32 5.0 K/mcL (0.6-4.6) H 08/04/18 15:10 APTT 38.5 Seconds (26.0-36.0) H 08/04/18 15:10 Chloride 110 mEq/L (98-107) H 08/05/18 06:32 Carbon Dioxide 18 mEq/L (23-29) L 08/04/18 15:10 Lactic Acid 3.4 mmol/L (0.5-2.2) H 08/04/18 16:06 Calcium 8.2 mg/dL (8.6-10.3) L 08/05/18 06:32 0.2 mg/dL (0.3-1.0) L 08/05/18 06:32 174 mcmol/L (16-53) H 08/04/18 15:10 5.5 g/dL (6.4-8.9) L 08/05/18 06:32 3.2 g/dL (3.5-5.7) L 08/05/18 06:32 2.3 g/dL (2.4-3.5) L 08/05/18 06:32 TSH 7.318 mcIU/mL (0.340-5.600) H 08/04/18 17:43 Ur Specific [place] >= 1.030 (1.010-1.025) H 08/04/18 17:02 Trace mg/dL (Negative) H 08/04/18 17:02 Moderate (Negative) H 08/04/18 17:02 Positive (Negative) A 08/04/18 17:02 Small (Negative) H 08/04/18 17:02 Ur Leukocyte Esterase Trace (Negative) H 08/04/18 17:02 15-30 per hpf (0-3) H 08/04/18 17:02 Ur Squamous Epith Cells Many per lpf (None-Few) H 08/04/18 17:02 Moderate per hpf (None-Few) H 08/04/18 17:02 Hyaline Casts Moderate per lpf (None-Few) H 08/04/18 17:02 Ur Culture Indicated? YES (NO) A 08/04/18 17:02 Salicylates < 2.5 mg/dL (15.0-30.0) L 08/04/18 16:06 Acetaminophen < 10 mcg/mL (10-20) L 08/04/18 16:06 Ur Amphetamines Screen Positive ng/mL (Enasym=2925) H 08/04/18 15:10 Hepatitis C Ab Screen Reactive (Nonreactive) H 08/04/18 15:10 Consult Discharge Plan - Plan Referrals: NONE,PCP [Primary Care Provider] -
[2018-08-05 12:50] VITALS: BP 102/71
[2018-08-05] MEDS ORDERED: hydrOXYzine pamoate 25 MG CAPSULE PO SCH (13:15)
--- NOTE | 2018-08-05 13:26 | Consult Note ---
Date of Encounter: 08/05/18 Time of Encounter: 12:20 Assessment & Recommendation (1) Methamphetamine abuse Status: Acute Assessment & Recommendation: Intake scheduled for a drug rehab on Tuesday. She does not appear to be at imminent risk to herself or anyone else at this time. (2) Generalized tonic-clonic seizure Status: Acute History of Present Illness Patient: new to practice Requesting Physician: Mario Nguyen Reason for consult: [place] Slip History of present illness: Ms. Dow is a 28 year old female who was admitted to the medical floor last evening after having a witnessed seizure in the emergency room parking lot. It was presumed to be from drug use. She is on a 72 hold/pink slip and appears to be wanting to leave. I went and introduce myself to the patient today, told her who I was and that I had been consulted was for further mental health evaluation. I asked her what happened, why she was in the hospital. She told me "I had a seizure yesterday". She states that she does not remember the seizure exactly, but remembers waking up with a bunch of people around her in the ED. She reports coming to the ED to bring a friend of hers who was having some chronic pain issues, waiting in the car and the next thing she remembers she was being admitted to the hospital. Patient denies being suicidal or homicidal. She denies any auditory or visual hallucinations. She states that she had been using amphetamine two days prior and having taken gabapentin 2400 mg yesterday in order to calm down from the agitation. She believes that the gabapentin is what caused the seizure. She does acknowledge having mental health problems, but states that they are much better than they were. She was in admitted to inpatient psychiatry hospital 3 to 4 weeks ago for depression, indirectly trying to get into a drug rehab. But she was discharged home instead. She acknowledges having mental health follow-up for her depression and going to counseling with a doctor in [facility]. She reports she has an intake appointment Tuesday with a vp digital marketing social media and crm for a drug rehab program that she is hopeful to get admitted to. She shows me the drug rehab information packet. She does take Celexa 20 mg for her depression and anxiety as well as Vistaril 50 mg four times a day for help with her anxiety. "If I was suicidal I would let you know. Today's my son's birthday and I want to go home to his birthday democrat. (her mother has her son) I am going to a drug rehab finally. I don't want to . I'm trying to get better". She talks considerably about her substance abuse history on and off the past 12 years. She denies use of opiates. She states she likes stimulants like cocaine and meth. She states that she used to use cocaine more on a regular basis but then "friends change" and then she started using methamphetamine more. She states physically that she is feeling better and is hopeful that her doctor will let her go home. She understands that she is getting IVs right now secondary to low blood pressure and she is being monitored. She also states that she saw a neurologist earlier. She does acknowledge getting angry and yelling at him as she was frustrated after she found out she had been "pinkslipped". "I am not suicidal. I did not try killing myself. I just want to go home". Recommendations: 1. Patient does not appear to be an imminent risk of hurting yourself or anybody else. She does have a mental health history but is currently stable on her medications and is seeking inpatient drug rehab which she has an intake for on Tuesday. Does not appear to be in need of a 1:1 sitter. 2. Her seizure does appear to be drug related. We discussed harm reduction and sobriety. 3. Encourage restarting her Celexa 20 mg PO Q day and Vistaril 50 mg QID for her anxiety and mood while in the hospital. CC: Mario Nguyen Past Med Surg Social Fam HX - Past Medical History Medical history: hepatitis, thyroid disease - Past Psychiatric History Psychiatric history: Reports: anxiety, depression, previous psychiatric hospitalization Family psychiatric history: No Family History of Suicide: None - Past Surgical History Surgical History: no surgical history - Social History Smoking Status: Current every day smoker Smokeless Tobacco Status: No Alcohol use: none Drug use: cocaine, methamphetamine (currently DOC) Occupational status: unemployed Current living situation: With Family Activity Level: Independent ambulation Recent Out of Country Travel Within the Last 8 Weeks: No Exposure or Possible Exposure to Illness During Travel: No - Family History Mother Living Status: Still Living Hx Family Cardiac Disorders: No Hx Family Respiratory Disorders: No Hx Family Cancer: No Hx Family GI Disorders: No Hx Family Endocrine Disorder: No Hx Family Neuromuscular Disorders: No Hx Family Neurologic Disorders: No Hx Family HEENT Disorders: No Hx Family Autoimmune Disorders: No Father Living Status: Still Living Hx Family Psychosocial Disorders: Yes (DEPRESSION, ETOH ABUSE) Medications & Allergies Levothyroxine Sodium [Levoxyl] 100 mcg PO DAILY 09/04/17 [History] Medroxyprogesterone Acetate [DEPO-Provera] 150 mg IM Q3M 09/04/17 [History] Citalopram Hydrobromide [Celexa] 20 mg PO DAILY 08/05/18 [History] hydrOXYzine HCl [Hydroxyzine HCl] 50 mg PO QID 08/05/18 [History] Allergy/AdvReac Type Severity Reaction Status Date / Time vancomycin Allergy Intermediate Hives Verified 03/22/17 09:06 Review of Systems Neurological: Reports: confusion, other (seizure) Psychiatric: Reports: confusion, difficulty concentrating, irritability Psychiatry Exam - Constitutional Vitals: Temp Pulse Resp BP Pulse Ox 98.1 F 69 12 102/71 100 08/05/18 03:29 08/05/18 11:37 08/05/18 11:52 08/05/18 12:50 08/05/18 06:23 General appearance: age & developmentally appropriate, unkempt (in a hospital bed), thin - Psychiatric Patient Orientation: Yes Person, Yes Time, Yes Place, Yes Circumstance Level of alertness: Alert Behavior: cooperative, anxious Psychomotor activity: Normal Eye Contact: Maintains Eye Contact Mood Description: Anxious Affect description: congruent with mood, incongruent with mood Speech pattern: normal rate, normal rhythm, normal tone, fluent Language & Vocabulary: consistent with education Thought Process: Intact, Linear, Goal Oriented Thought Content: Yes Intact Attention Span Ability: Capable of Focused Attention Memory Description: Grossly Intact Patient Reliability: Reliable Historian Fund of knowledge: Yes average Intelligence Estimate: Average Judgment: Good (at this time) Insight: Full (at this time) Results - Drug Levels and Toxicology Drug Levels and Toxicology: Drug Levels and Toxicity 08/04/18 08/04/18 08/04/18 15:10 15:10 16:06 Urine Opiates Screen Negative Acetaminophen < 10 L Ur Barbiturates Screen Negative Ur Phencyclidine Scrn Negative Ur Amphetamines Screen Positive H U Benzodiazepines Scrn Negative Urine Cocaine Screen Negative U Marijuana (THC) Screen Negative Ethyl Alcohol < 10 - Labs Labs: Laboratory Last Values WBC 6.1 K/mcL (4.3-11.1) 08/05/18 06:32 RBC 3.64 M/mcL (3.82-4.97) L 08/05/18 06:32 Hgb 11.8 g/dL (11.5-15.4) D 08/05/18 06:32 Hct 36.0 % (35.3-44.9) 08/05/18 06:32 MCV 98.9 fL (83.0-100.0) 08/05/18 06:32 MCH 32.4 pg (28.0-33.3) 08/05/18 06:32 MCHC 32.8 g/dL (31.6-35.5) 08/05/18 06:32 RDW 12.3 % (11.5-14.5) 08/05/18 06:32 Plt Count 198 K/mcL (140-400) 08/05/18 06:32 MPV 8.5 fL (9.4-12.4) L 08/05/18 06:32 Immature Gran % 0.5 % (0-4) 08/05/18 06:32 Seg Neutrophils % 49.4 % 08/05/18 06:32 36.4 % 08/05/18 06:32 9.1 % 08/05/18 06:32 3.8 % 08/05/18 06:32 0.8 % 08/05/18 06:32 3.0 K/mcL (1.6-8.9) 08/05/18 06:32 2.2 K/mcL (0.6-4.6) 08/05/18 06:32 0.6 K/mcL (0.0-1.3) 08/05/18 06:32 0.2 K/mcL (0.0-0.6) 08/05/18 06:32 0.1 K/mcL (0.0-0.2) 08/05/18 06:32 PT 10.6 Seconds (9.4-12.1) 08/04/18 15:10 INR 0.9 08/04/18 15:10 APTT 38.5 Seconds (26.0-36.0) H 08/04/18 15:10 Sodium 141 mEq/L (136-145) 08/05/18 06:32 Potassium 3.9 mEq/L (3.5-5.1) 08/05/18 06:32 Chloride 110 mEq/L (98-107) H 08/05/18 06:32 Carbon Dioxide 27 mEq/L (23-29) 08/05/18 06:32 BUN 15 mg/dL (6-20) 08/05/18 06:32 0.80 mg/dL (0.60-1.20) 08/05/18 06:32 Est GFR ( Amer) > 60 (> 60) 08/05/18 06:32 Est GFR (Non-Af Amer) > 60 (> 60) 08/05/18 06:32 19 (6-26) 08/05/18 06:32 Glucose 87 mg/dL (70-105) 08/05/18 06:32 292 (280-300) 08/05/18 06:32 Lactic Acid 0.8 mmol/L (0.5-2.2) 08/04/18 21:09 Calcium 8.2 mg/dL (8.6-10.3) L 08/05/18 06:32 0.2 mg/dL (0.3-1.0) L 08/05/18 06:32 0.1 mg/dL (0.0-0.2) 08/04/18 15:10 0.1 mg/dL (0.0-1.2) 08/04/18 15:10 AST 22 Units/L (13-39) 08/05/18 06:32 ALT 27 Units/L (7-52) 08/05/18 06:32 49 Units/L (34-104) 08/05/18 06:32 44 mcmol/L (16-53) 08/05/18 06:32 171 Units/L (30-223) 08/04/18 15:10 < 0.03 ng/mL (< 0.04) 08/04/18 15:10 5.5 g/dL (6.4-8.9) L 08/05/18 06:32 3.2 g/dL (3.5-5.7) L 08/05/18 06:32 2.3 g/dL (2.4-3.5) L 08/05/18 06:32 1.4 (1.1-2.2) 08/05/18 06:32 TSH 7.318 mcIU/mL (0.340-5.600) H 08/04/18 17:43 Free T4 0.93 ng/dl (0.70-2.00) 08/04/18 17:43 Dark Yellow (Yellow) 08/04/18 17:02 Clear (Clear) 08/04/18 17:02 5.0 pH Units (5.0-8.0) 08/04/18 17:02 Ur Specific [place] >= 1.030 (1.010-1.025) H 08/04/18 17:02 Trace mg/dL (Neg-Trace) 08/04/18 17:02 Normal mg/dL (Normal) 08/04/18 17:02 Trace mg/dL (Negative) H 08/04/18 17:02 Moderate (Negative) H 08/04/18 17:02 Positive (Negative) A 08/04/18 17:02 Small (Negative) H 08/04/18 17:02 Normal mg/dL (Normal) 08/04/18 17:02 Ur Leukocyte Esterase Trace (Negative) H 08/04/18 17:02 0-3 per hpf (0-3) 08/04/18 17:02 15-30 per hpf (0-3) H 08/04/18 17:02 Ur Squamous Epith Cells Many per lpf (None-Few) H 08/04/18 17:02 Moderate per hpf (None-Few) H 08/04/18 17:02 Hyaline Casts Moderate per lpf (None-Few) H 08/04/18 17:02 Ur Culture Indicated? YES (NO) A 08/04/18 17:02 Negative (Negative) 08/04/18 17:02 Salicylates < 2.5 mg/dL (15.0-30.0) L 08/04/18 16:06 Negative ng/mL (Ngjumf=688) 08/04/18 15:10 Acetaminophen < 10 mcg/mL (10-20) L 08/04/18 16:06 Ur Barbiturates Screen Negative ng/mL (Aczoxi=818) 08/04/18 15:10 Ur Phencyclidine Scrn Negative ng/mL (Cutoff=25) 08/04/18 15:10 Ur Amphetamines Screen Positive ng/mL (Cqtalh=5473) H 08/04/18 15:10 U Benzodiazepines Scrn Negative ng/mL (Agkagu=640) 08/04/18 15:10 Negative ng/mL (Cutoff= 300) 08/04/18 15:10 U Marijuana (THC) Screen Negative ng/mL (Cutoff = 50) 08/04/18 15:10 Ur Drug Screen Interp See Below 08/04/18 15:10 Ethyl Alcohol < 10 mg/dL (Less than 10) 08/04/18 15:10 Hepatitis A IgM Ab Nonreactive (Nonreactive) 08/04/18 15:10 Hep Bs Antigen Nonreactive (Nonreactive) 08/04/18 15:10 Hep B Core IgM Ab Nonreactive (Nonreactive) 08/04/18 15:10 Hepatitis C Ab Screen Reactive (Nonreactive) H 08/04/18 15:10 - Impressions Impressions Chest X-Ray 08/04/18 15:10 IMPRESSION: No acute process. D/ / Raymond Patino MD / Raymond Patino MD Interpreting Provider: Raymond Patino MD Head CT 08/04/18 15:11 IMPRESSION: No acute intracranial abnormality. D/ / Ant Coronel MD / Ant Coronel MD Interpreting Provider: Ant Coronel MD Cervical Spine CT 08/04/18 15:14 IMPRESSION: No acute abnormality of the cervical spine. Stable mild reversal of normal cervical lordosis-unchanged from 2012. Minimal or early degenerative disc changes from C5 through C7. D/ / Albaro Perry MD / Albaro Perry MD Interpreting Provider: Albaro Perry MD Consult Discharge Plan - Plan Referrals: NONE,PCP [Primary Care Provider] -
--- NOTE | 2018-08-05 17:44 | Discharge Summary ---
Orders not resulted at time of discharge: Pending orders 08/04/18 15:10 ECG 12 lead ECG [ECG] Stat 08/04/18 16:06 Culture,Blood [BC] Stat 08/04/18 17:02 Culture,Urine [RM] Stat 08/05/18 11:41 EKG [ECG 12 lead ECG] [ECG] Stat Date of Encounter: 08/05/18 Time of Encounter: 11:00 - Discharge Diagnosis (1) Altered mental state Priority: Primary Status: Acute Qualifiers: Altered mental status type: unspecified Qualified Code(s): R41.82 - Altered mental status, unspecified (2) Methamphetamine abuse Priority: Primary Status: Acute (3) Seizure-like activity Priority: Secondary Status: Acute (4) Hypothyroidism Priority: Secondary Status: Acute Qualifiers: Hypothyroidism type: acquired Qualified Code(s): E03.9 - Hypothyroidism, unspecified (5) Hepatitis C Priority: Secondary Status: Chronic Qualifiers: Viral hepatitis chronicity: unspecified Qualified Code(s): B19.20 - Unspecified viral hepatitis C without hepatic coma (6) Mood disorder Priority: Primary Status: Acute Hospital course: Patient is a 28-year-old female who reports a past medical history hepatitis C, drug abuse and mood disorder with recent inpatient psychiatric stay due to suicidal ideation approximately 3 weeks ago who presents due to confusion. Patient not able to give history but apparently she was witnessed in the parking lot with seizure activity and noted confusion on admission to the ER. In the ER patient head CT was negative for acute findings and urinalysis positive for pyuria; urine cultures pending. Patients urine drug tox was positive for amphetamines and patient admitted to using methamphetamine. She will be admitted to the medical surgical floor for observation. Neurology was also consulted due to patient with witnessed seizure and suspects seizures secondary to methamphetamine use. Apparently patient was pink slipped from the ER and psychiatry was consulted w ith recommendations to start patient on SSRI swell as Vistaril; pink slipped was removed and patient was not deemed to be suicidal. Patient was hypotensive and required multiple boluses. Patient however left AMA although hypotensive even with fluid resuscitation. - Time Spent with Patient Total time spent providing and/or coordinating discharge services: Time spent: Less than 30 minutes - Discharge Medications Prescriptions: No Action Medroxyprogesterone Acetate [DEPO-Provera] 150 mg IM Q3M Levothyroxine Sodium [Levoxyl] 100 mcg PO DAILY Citalopram Hydrobromide [Celexa] 20 mg PO DAILY hydrOXYzine HCl [Hydroxyzine HCl] 50 mg PO QID Home Medications: Levothyroxine Sodium [Levoxyl] 100 mcg PO DAILY 09/04/17 [History] Medroxyprogesterone Acetate [DEPO-Provera] 150 mg IM Q3M 09/04/17 [History] Citalopram Hydrobromide [Celexa] 20 mg PO DAILY 08/05/18 [History] hydrOXYzine HCl [Hydroxyzine HCl] 50 mg PO QID 08/05/18 [History] Allergies/Adverse Reactions: Allergy/AdvReac Type Severity Reaction Status Date / Time vancomycin Allergy Intermediate Hives Verified 03/22/17 09:06 Date of admission: 08/04/18 18:56 Primary care physician: PCP NONE Consults: 08/04/18 18:58 Consult to Neurology [CONS] Stat Consulting Provider: Neu[facility] Reason for Consult: Seizure-like activity Call Completed: Yes 08/05/18 10:00 Consult to Psychiatry [CONS] Stat Consulting Provider: Psychiatry [place] Reason consult: [place] slip on chart [place] Slip initiated date and time: 08/04/18 1527 Time Notified: 10:01 Call Completed: Yes - Constitutional Vitals: Temp Pulse Resp BP Pulse Ox 98.1 F 69 12 102/71 100 08/05/18 03:29 08/05/18 11:37 08/05/18 11:52 08/05/18 12:50 08/05/18 06:23 General appearance: Present: A&O X 3, no acute distress Exam: ABOVE - Psychiatric Psychiatric exam: Absent: suicidal ideation - Patient Status Disposition: Left Against Medical Advice Condition: Serious - Discharge Instructions Follow Up With: NONE,PCP [Primary Care Provider] -
--- NOTE | 2018-08-07 20:31 | Electrocardiograph Report ---
[address] [place], [place] [address] Test Date: 2018-08-04 Pat Name: Jodi Dow Department: [id number] Room: 2NE31 Gender: F Aircraft Structural Repair Mechanic: : [id number] Requested By: Willie Thorpe Order Number: [id number] Reading MD: Salina Sykes Measurements Intervals [place] Rate: 115 P: 74 ME: 153 QRS: 95 QRSD: 91 T: 26 QT: 330 QTc: 457 Interpretive Statements Sinus tachycardia Right atrial enlargement Borderline right axis deviation Nonspecific ST-T abnormalities Electronically Signed On 08-07-2018 20:29:15 EDT by Salina Sykes
== END 2018-08-05 14:11 | disposition left against medical advice (07) ==
LOC: EMEROOARM 15:08 → 2NENU 15:08 → SUATTDRO 18:56 → 2NENU 21:17
PROVIDERS: ADMIT Internal Medicine Nephrology; ATTEND Hospitalist

== ENCOUNTER 2019-02-15 09:03 | Observation (INO) ==
[2019-02-15] MEDS ORDERED: Glycerin RECTAL Suppository RC ONE (10:05)
[2019-02-15 10:59] LABS: Varicella Zoster IgG Antibody Positive
[2019-02-15 11:00] LABS: Rubella IgG Antibody POSITIVE (POSITIVE)
[2019-02-15 11:11] LABS: Hepatitis B Surface Antigen Nonreactive (Nonreactive)
[2019-02-15 11:40] LABS: HIV-1&2 Antibody & p24 Ag Nonreactive (Nonreactive)
[2019-02-15] MEDS ORDERED: Glycerin RECTAL Suppository RC PRN (12:01)
[2019-02-15 17:15] LABS: Bilirubin,Urine Negative (Negative); Blood,Urine Negative (Negative); Clarity,Urine Cloudy (Clear); Color,Urine Yellow (Yellow); Glucose,Urine (UA) Normal (Normal); Ketones,Urine Negative (Negative); Leukocyte Esterase,Urine Large (Negative); Nitrite,Urine Positive (Negative); Protein,Urine 30 mg/dL (Neg-Trace); Specific Gravity,Urine 1.021 (1.010-1.025); Urobilinogen,Urine Normal (Normal)
[2019-02-15 17:20] LABS: Bacteria,Urine Many per hpf (None-Few); Hyaline Casts,Urine Few per lpf (None-Few); Squamous Epithelial Cell,Urine Many per lpf (None-Few); WBC,Urine TNTC per hpf (0-3)
[2019-02-15 17:39] LABS: Amphetamine Screen,Urine Negative ng/mL (Cutoff=1000); Barbiturate Screen,Urine Negative ng/mL (Cutoff=200); Benzodiazepines Screen,Urine Negative ng/mL (Cutoff=200); Cannabinoid Screen,Urine Negative ng/mL (Cutoff = 50); Cocaine Screen,Urine Negative ng/mL (Cutoff= 300); Opiate Screen,Urine Negative ng/mL (Cutoff=300); Phencyclidine Screen,Urine Negative ng/mL (Cutoff=25)
[2019-02-15] MEDS ORDERED: Rho Immune Globulin 1,500 UNIT SYRINGE IM ONE (17:45)
== END 2019-02-15 18:04 | disposition home or self-care (01) ==
LOC: 1NENULAB
PROVIDERS: ADMIT Advanced Practice Midwife; ATTEND Advanced Practice Midwife

== ENCOUNTER 2019-03-29 12:56 | Inpatient (IN) ==
[2019-03-29 11:47] LABS: Basophils # 0.1 K/mcL (0.0-0.2); Basophils % 0.4 %; Eosinophils # 0.5 K/mcL (0.0-0.6); Eosinophils % 3.6 %; Hematocrit 35.3 % (35.3-44.9); Hemoglobin 11.9 g/dL (11.5-15.4); Immature Granulocytes % 1.7 % (0-4); Lymphocytes # 1.7 K/mcL (0.6-4.6); Lymphocytes % 13.7 %; Mean Corpuscular HGB Conc 33.7 g/dL (31.6-35.5); Mean Corpuscular Volume 97.8 fL (83.0-100.0); Mean Platelet Volume 10.5 fL (9.4-12.4); Monocytes # 0.7 K/mcL (0.0-1.3); Monocytes % 5.8 %; Neutrophils # 9.4 K/mcL (1.6-8.9); Platelet Count 310 K/mcL (140-400); Red Blood Count 3.61 M/mcL (3.82-4.97); Red Cell Distribution Width 13.2 % (11.5-14.5); Segmented Neutrophils % 74.8 %; White Blood Count 12.6 K/mcL (4.3-11.1)
[2019-03-29 12:02] LABS: Amphetamine Screen,Urine Negative ng/mL (Cutoff=1000); Barbiturate Screen,Urine Negative ng/mL (Cutoff=200); Benzodiazepines Screen,Urine Negative ng/mL (Cutoff=200); Cannabinoid Screen,Urine Negative ng/mL (Cutoff = 50); Cocaine Screen,Urine Negative ng/mL (Cutoff= 300); Opiate Screen,Urine Negative ng/mL (Cutoff=300); Phencyclidine Screen,Urine Negative ng/mL (Cutoff=25)
[2019-03-29 12:23] LABS: Thyroid Stimulating Hormone 32.864 mcIU/mL (0.340-5.600)
[2019-03-29 12:27] LABS: Triiodothyronine (T3) Free 2.41 pg/mL (2.50-3.90)
[2019-03-29 12:30] LABS: Triiodothyronine (T3) Total 1.18 ng/mL (0.87-1.78)
[~2019-03-29 12:56] MED LIST: Naloxone 0.4 MG/ML INJ IVP PRN; Ondansetron 4 MG/2 ML VIAL IVP PRN
[2019-03-29] MEDS ORDERED: SODIUM CHLORIDE 0.9% IVPB SCH (13:00)
[2019-03-29] MEDS ORDERED: DAPTOMYCIN IVPB SCH (13:00)
[2019-03-29] MEDS ORDERED: DAPTOmycin 375 MG in 0.9 % Sodium Chloride 100 ML IVPB SCH (13:30)
[2019-03-30 20:20] LABS: HCV Quant Log 6.08 log IU/mL
[2019-03-31 10:20] LABS: HCV Quant Interpretation DETECTED (Not Detected)
[2019-03-31 10:20] LABS: Thyroglobulin Antibody >2200.0 IU/mL (0.0-4.0)
== END 2019-03-29 18:00 | disposition left against medical advice (07) | DRG 566 ==
LOC: 1NENULAB
PROVIDERS: ADMIT Advanced Practice Midwife; ATTEND Advanced Practice Midwife

== ENCOUNTER 2019-05-01 03:54 | Inpatient (IN) ==
[~2019-05-01 03:54] MED LIST changes: +Famotidine 20 MG/2 ML VIAL IVP PRN; +Metoclopramide 10 MG/2 ML VIAL IVP PRN
[2019-05-01] MEDS ORDERED: Ringers Solution, Lactated 1,000 ML ONE (03:55)
[2019-05-01] MEDS ORDERED: Ringers Solution, Lactated 1,000 ML IVC SCH (04:00)
[2019-05-01] MEDS ORDERED: *HR* FentaNYL (PF) 100 MCG/2 ML VIAL EP ONE (04:15)
[2019-05-01] MEDS ORDERED: Bupivacaine-MPF 0.25% 10 ML VIAL EP ONE (04:15)
[2019-05-01] MEDS ORDERED: EPHEDrine 50 MG/ML VIAL IVP PRN (04:15)
[2019-05-01] MEDS ORDERED: Epidural Premix (fent/bupiv) 110 ML EP SCH (04:15)
[2019-05-01 04:17] LABS: Basophils # 0.1 K/mcL (0.0-0.2); Basophils % 0.4 %; Eosinophils # 0.2 K/mcL (0.0-0.6); Eosinophils % 1.9 %; Hematocrit 36.5 % (35.3-44.9); Hemoglobin 11.8 g/dL (11.5-15.4); Immature Granulocytes % 1.3 % (0-4); Lymphocytes # 2.4 K/mcL (0.6-4.6); Mean Corpuscular HGB Conc 32.3 g/dL (31.6-35.5); Mean Corpuscular Hemoglobin 31.3 pg (28.0-33.3); Mean Corpuscular Volume 96.8 fL (83.0-100.0); Mean Platelet Volume 10.3 fL (9.4-12.4); Monocytes # 0.9 K/mcL (0.0-1.3); Monocytes % 7.3 %; Neutrophils # 8.2 K/mcL (1.6-8.9); Platelet Count 376 K/mcL (140-400); Red Blood Count 3.77 M/mcL (3.82-4.97); Red Cell Distribution Width 12.6 % (11.5-14.5); Segmented Neutrophils % 69.1 %; White Blood Count 11.9 K/mcL (4.3-11.1)
[2019-05-01] MEDS ORDERED: *HR* FentaNYL (PF) 100 MCG/2 ML VIAL ONE (04:17)
[2019-05-01] MEDS ORDERED: Bupivacaine-MPF 0.25% 10 ML VIAL ONE (04:17)
[2019-05-01 04:45] LABS: Amphetamine Screen,Urine Positive ng/mL (Cutoff=1000); Barbiturate Screen,Urine Negative ng/mL (Cutoff=200); Benzodiazepines Screen,Urine Negative ng/mL (Cutoff=200); Cannabinoid Screen,Urine Negative ng/mL (Cutoff = 50); Cocaine Screen,Urine Negative ng/mL (Cutoff= 300); Opiate Screen,Urine Negative ng/mL (Cutoff=300); Phencyclidine Screen,Urine Negative ng/mL (Cutoff=25)
[2019-05-01] MEDS ORDERED: Ketorolac 30 MG/ML VIAL IVP ONE (05:01)
[2019-05-01 05:54] LABS: Candida DNA Not Detected (Not Detect); Gardnerella DNA Not Detected (Not Detect); Trichomonas DNA Not Detected (Not Detect)
[2019-05-01] MEDS ORDERED: Benzocaine/Menthol 56 GM AEROSOL SPRAY TP PRN (08:07)
[2019-05-01] MEDS ORDERED: Measles/Mumps/Rubella Vacc 0.5 ML VIAL SQ PRN (08:07)
[2019-05-01] MEDS ORDERED: Oxytocin 20 units/ LR 1000 mL 20 UNIT/1,000 ML BAG IVC SCH (08:07)
[2019-05-01] MEDS ORDERED: Rho Immune Globulin 1,500 UNIT SYRINGE IM PRN (08:07)
[2019-05-01] MEDS ORDERED: Acetaminophen 325 MG TABLET PO PRN (08:07)
[2019-05-01] MEDS: Ibuprofen 600 MG TABLET PO PRN (08:18)
[2019-05-01] MEDS: Prenatal Vit/FA 1 EACH TABLET PO SCH (08:19)
[2019-05-01] MEDS: *HR* Buprenorphine HCl 8 MG TAB.SUBL SL SCH ×2 (10:19→20:55)
[2019-05-02 08:06] VITALS: BP 123/80
[2019-05-02] MEDS: Prenatal Vit/FA 1 EACH TABLET PO SCH (08:20)
[2019-05-02] MEDS: *HR* Buprenorphine HCl 8 MG TAB.SUBL SL SCH (08:20)
[2019-05-02] MEDS: Ibuprofen 600 MG TABLET PO PRN (08:21)
[2019-05-03 15:42] LABS: HCV Quant Log 6.38 log IU/mL
[2019-05-03 17:59] LABS: HCV Quant Interpretation DETECTED (Not Detected)
== END 2019-05-02 12:05 | disposition home or self-care (01) | DRG 560 ==
LOC: 1NENULAB → 1NENUOBS 08:11
PROVIDERS: ADMIT Registered Nurse; ATTEND Registered Nurse

== ENCOUNTER 2020-04-23 04:30 | Inpatient (IN) ==
[~2020-04-23 04:30] MED LIST changes: +Lidocaine 1% 20 ML MDV INFILT PRN; -Ondansetron 4 MG/2 ML VIAL IVP PRN; +Ringers Solution, Lactated 1,000 ML IVC SCH
[2020-04-23] MEDS ORDERED: Penicillin G Potassium 5,000,000 UNIT in 0.9 % Sodium Chloride Mini Bag 100 ML IVPB ONE (04:32)
[2020-04-23] MEDS ORDERED: Lidocaine -MPF 2% 5 ML VIAL ONE (04:48)
[2020-04-23 05:11] LABS: Basophils # 0.1 K/mcL (0.0-0.2); Basophils % 0.5 %; Eosinophils # 0.3 K/mcL (0.0-0.6); Eosinophils % 2.9 %; Hematocrit 32.4 % (35.3-44.9); Hemoglobin 10.9 g/dL (11.5-15.4); Immature Granulocytes % 2.2 % (0-4); Lymphocytes # 3.1 K/mcL (0.6-4.6); Lymphocytes % 32.7 %; Mean Corpuscular HGB Conc 33.6 g/dL (31.6-35.5); Mean Corpuscular Hemoglobin 34.8 pg (28.0-33.3); Mean Corpuscular Volume 103.5 fL (83.0-100.0); Monocytes # 0.6 K/mcL (0.0-1.3); Monocytes % 5.9 %; Neutrophils # 5.3 K/mcL (1.6-8.9); Nucleated Red Blood Cells 0.7 /100 WBC (0); Platelet Count 262 K/mcL (140-400); Red Blood Count 3.13 M/mcL (3.82-4.97); Red Cell Distribution Width 13.4 % (11.5-14.5); Segmented Neutrophils % 55.8 %; White Blood Count 9.6 K/mcL (4.3-11.1)
[2020-04-23] MEDS ORDERED: *HR* FentaNYL (PF) 100 MCG/2 ML VIAL EP ONE (05:11)
[2020-04-23] MEDS ORDERED: EPHEDrine 50 MG/ML VIAL IVP PRN (05:11)
[2020-04-23] MEDS ORDERED: *HR* FentaNYL (PF) 100 MCG/2 ML VIAL ONE (05:13)
[2020-04-23] MEDS ORDERED: Epidural Premix (fent/bupiv) 110 ML EP SCH (05:15)
[2020-04-23 05:29] LABS: Amphetamine Screen,Urine Negative ng/mL (Cutoff=1000); Barbiturate Screen,Urine Negative ng/mL (Cutoff=200); Benzodiazepines Screen,Urine Negative ng/mL (Cutoff=200); Cannabinoid Screen,Urine Negative ng/mL (Cutoff = 50); Cocaine Screen,Urine Negative ng/mL (Cutoff= 300); Opiate Screen,Urine Negative ng/mL (Cutoff=300); Phencyclidine Screen,Urine Negative ng/mL (Cutoff=25)
[2020-04-23 06:31] LABS: Influenza A PCR Negative (Negative); Influenza B PCR Negative (Negative); Resp. Syncytial Virus PCR Negative (Negative)
[2020-04-23 06:33] LABS: SARS-CoV-2 by PCR (In House) Negative (Negative)
[2020-04-23 06:45] LABS: Candida DNA Not Detected (Not Detect); Gardnerella DNA Not Detected (Not Detect); Trichomonas DNA Not Detected (Not Detect)
[2020-04-23] MEDS ORDERED: Penicillin G Potassium 2,500,000 UNIT/105 ML MLS IVPB SCH (09:00)
[2020-04-23] MEDS ORDERED: Oxytocin 20 units/ LR 1000 mL 20 UNIT/1,000 ML BAG IVC ONE ×2 (09:11→13:45)
[2020-04-23] MEDS ORDERED: Benzocaine/Menthol 56 GM AEROSOL SPRAY TP PRN (14:35)
[2020-04-23] MEDS ORDERED: Acetaminophen 325 MG TABLET PO PRN (14:35)
[2020-04-23] MEDS ORDERED: Ibuprofen 600 MG TABLET PO PRN (14:35)
[2020-04-23] MEDS ORDERED: Rho Immune Globulin 1,500 UNIT SYRINGE IM PRN (14:35)
[2020-04-23] MEDS ORDERED: Measles/Mumps/Rubella Vacc 0.5 ML VIAL SQ PRN (14:35)
[2020-04-23] MEDS ORDERED: Oxytocin 20 units/ LR 1000 mL 20 UNIT/1,000 ML BAG IVC SCH (14:35)
[2020-04-23] MEDS: *HR* Buprenorphine HCl 8 MG TAB.SUBL SL SCH (22:25)
[2020-04-24 08:45] VITALS: BP 134/88
[2020-04-24] MEDS ORDERED: Prenatal Vit/FA 1 EACH TABLET PO SCH (09:00)
[2020-04-24] MEDS: *HR* Buprenorphine HCl 8 MG TAB.SUBL SL SCH (09:30)
== END 2020-04-24 10:55 | disposition home or self-care (01) | DRG 560 ==
LOC: 1NENULAB → 1NENUOBS 13:58
PROVIDERS: ADMIT Advanced Practice Midwife; ATTEND Advanced Practice Midwife